=== PATIENT | female | born 1945 | race Caucasian/White ===

== ENCOUNTER → 2016-07-17 | Outpatient (CLI) | payer OTHER ==
--- NOTE | 2016-07-17 18:58 | CT ---
CT Lumbar Spine Contrast Indication: Pain. Technique: 1.2-mm thick helically acquired slices were obtained through the lumbar spine. The data was reconstructed in bone algorithm in the axial, sagittal, and coronal plane. Data was reconstructe d in soft tissue algorithm and soft tissue plane. Dose reduction techniques were utilized. Comparison: Fluoroscopy from April 01, 2016. Findings: L1 is retrolisthesed 2 mm on L2. L4 is anterolisthesed 10 mm on L5. The lumbar spine has mild dextrocurvature, apex at L1-L2, with a Plummer angle of 11 degrees between the superior endplate o f L1 and the superior endplate of L3. The L2 vertebral body is translated to the right 5 mm on L3. The bones are demineralized. No acute compression fracture. The posterior fusion construct extending from L3 to L5, consisting of dual posterior rods and bilater al transvertebral screws at L3, L4, and L5, is well seated. The L3, L4, and L5 vertebral bodies are completely osseous fused. The posterior elements are at least partially fused. Bilateral laminectom ies have been performed at L4 and L5. Anterior screws, with washers, are transfixed in the anterior bodies of L3, L4. No perihilar hardware fracture or lucency. T12-L1: Widely patent central canal and neural foramina. L1-L2: Grade 1 retrolisthesis of L1 on L2 combined with a diffuse broad-based disk bulge and facet h ypertrophy results in minimal central canal narrowing and severe bilateral neural foraminal narrowing , worse left than right. The exiting left L1 nerve root is compressed and deformed as it courses thr ough the neural foramen (best demonstrated on the sagittal reconstruction). L2-L3: Severe central canal narrowing is partially obscured by artifact radiating off the pedicle sc rews. Severe bilateral neural foraminal narrowing is worse on the right. An eccentric large right f acet spur, with a low-attenuation synovial cyst, results in severe narrowing of the right neural fora men and right ventral lateral recess (best demonstrated on images #215 through 241 of series #2). L3-L4: Residual strut of L3 laminectomy continues to result in mild to moderate central canal narro wing. The thecal sac measures 9 mm AP. The neural foramina appear to be widely patent, with no bony encroachment. L4-L5: Widely patent central canal decompressed posteriorly by a large laminectomy defect. Bilatera l neural foramina are widely patent. L5-S1: A large left posterolateral disk herniation (extrusion) results in severe narrowing of the ce ntral canal and ventral lateral recess compressing and deforming the left S1 nerve root in the ventra l lateral recess. Impression: 1. Demineralization. No acute fracture. 2. Well-seated anterior and posterior fusion construct extending from L3 to L5. No hardware looseni ng. 3. L5-S1: Left posterolateral disk herniation (extrusion) resulting in severe narrowing of the cent ral canal and left ventral lateral recess likely affecting the left S1 nerve root. 4. Severe bilateral neural foraminal narrowing at L1-L2 and L2-L3 due to facet hypertrophy and uncov ertebral spurs. A large asymmetric right facet and synovial cysts are present at the L2-L3 level. 5. Severe central canal narrowing at L2-L3 just superior to the level of the fusion construct. 6. Moderate central canal narrowing at L2-L3 due to residual L3 laminar strut.
== END ==
LOC: FIMAGING 13:59
DX: M51.27 Other intervertebral disc displacement, lumbosacral region (principal); M99.73 Connective tissue and disc stenosis of intervertebral foramina of lumbar region; M48.06 Spinal stenosis, lumbar region; M71.38 Other bursal cyst, other site; M89.38 Hypertrophy of bone, other site; M46.06 Spinal enthesopathy, lumbar region; Z98.1 Arthrodesis status

== ENCOUNTER 2016-08-05 09:48 | Inpatient (IN) | payer OTHER ==
[~2016-08-05 09:48] MED LIST: BACITRACIN 50,000 UNITS/10 ML SYR IRR ONE; BUPIVACAINE 0.25% 30 ML SDV ONE; BUPIVACAINE/EPI 0.25% 30 ML SDV ONE; CITRATE DEXTROSE SOLN 500 ML BAG ONE; PROPOFOL/EMULSION 500 MG/50 ML BOTTLE IV ONE; REMIFENTANIL HCL 1 MG VIAL ONE; THROMBIN (RECOMBINANT) 20,000 UNIT VIAL TP ONE; ceFAZolin 2 GM/DEXTROSE 100 ML IV ONE; fentaNYL 100 MCG/2 ML INJ ONE
[2016-08-05] MEDS ORDERED: CEFAZOLIN 2 GM/DEXTROSE/100 ML BAG IV ONE (10:17)
[2016-08-05] MEDS ORDERED: LIDOCAINE 1% 5 ML SDV ID PRN (11:14)
[2016-08-05] MEDS ORDERED: LR 1,000 ML IV ONE (11:14)
[2016-08-05] MEDS ORDERED: AMINOCAPROIC ACID 5 GM/20 ML VIAL ONE ×2 (11:37→18:16)
[2016-08-05] MEDS ORDERED: PROPOFOL 200 MG/20 ML VIAL ONE ×2 (11:43→17:17)
[2016-08-05] MEDS ORDERED: PHENYLEPHRINE HCL 100 MCG/ML SYR ONE (11:43)
[2016-08-05] MEDS ORDERED: PHENYLEPHRINE 10 MG/ML SDV ONE (12:39)
[2016-08-05] MEDS ORDERED: DEXAMETHASONE 4 MG/ML VIAL ONE (12:51)
[2016-08-05] MEDS ORDERED: ONDANSETRON 4 MG/2 ML VIAL ONE (12:51)
[2016-08-05] MEDS ORDERED: PROPOFOL/EMULSION 500 MG/50 ML BOTTLE IV ONE ×4 (13:34→19:40)
[2016-08-05] MEDS ORDERED: BACITRACIN 50,000 UNITS/10 ML SYR IRR ONE ×2 (14:02→15:46)
[2016-08-05] MEDS ORDERED: HYDROmorphONE/DILAUDID 2 MG/ML INJ ONE (14:07)
[2016-08-05] MEDS ORDERED: LACTULOSE 20 GM/30 ML UDCUP PO PRN (14:12)
[2016-08-05] MEDS ORDERED: MAG HYDROX/AL HYDROX/SIMETH 30 ML UDCUP PO PRN (14:12)
[2016-08-05] MEDS ORDERED: DIAZEPAM 5 MG TAB PO PRN (14:12)
[2016-08-05] MEDS ORDERED: MAGNESIUM HYDROXIDE 30 ML UDCUP PO PRN (14:12)
[2016-08-05] MEDS ORDERED: DIAZEPAM 10 MG/2 ML SYR IVP PRN (14:12)
[2016-08-05] MEDS ORDERED: ONDANSETRON DISINTEGRATING 4 MG TAB PO PRN (14:12)
[2016-08-05] MEDS ORDERED: NALOXONE HCL 0.4 MG/ML INJ IVP PRN ×2 (14:12→14:20)
[2016-08-05] MEDS ORDERED: BISACODYL 10 MG SUPP PR PRN (14:12)
[2016-08-05] MEDS ORDERED: ONDANSETRON 4 MG/2 ML VIAL IVP PRN (14:12)
[2016-08-05] MEDS ORDERED: NS W/ 20 KCl/L 1,000 ML IV SCH (14:15)
[2016-08-05] MEDS ORDERED: SPIRONOLACTONE 25 MG TAB PO PRN (14:19)
[2016-08-05] MEDS ORDERED: HYDROmorphONE/DILAUDID 6 MG/30 ML PCA IV PRN (14:20)
[2016-08-05] MEDS ORDERED: ceFAZolin 1 GM VIAL ONE (14:34)
[2016-08-05 15:15] LABS: BASE EXCESS -1.9 mEq/L (-2.5-2.5); BICARBONATE 22 mEq/L (22-26); MEASURED OXYGEN SATURATION 100 % (92-95); PCO2 39 mmHg (34-38); PO2 247 mmHg (65-75); TCO2 24 mEq/L (23-27)
[2016-08-05] MEDS ORDERED: fentaNYL 100 MCG/2 ML INJ ONE (15:29)
[2016-08-05] MEDS ORDERED: morphINE PF 10 MG/10 ML INJ ONE (15:29)
[2016-08-05] MEDS ORDERED: SUGAMMADEX SODIUM 200 MG/2 ML VIAL IVP ONE (16:00)
[2016-08-05 16:37] LABS: % IMMATURE GRANULYOCYTES 0.8 % (0.0-1.1); ABSOLUTE IMMATURE GRANULOCYTES 0.07 10^3/uL (0.00-0.10); ADD DIFF? NO; ADD MORPH? NO; ADD SCAN? NO; ATYPICAL LYMPHOCYTE FLAG 0 (0-99); FRAGMENT RBC FLAG 0 (0-99); HEMATOCRIT 37.3 % (38.0-47.0); HEMOGLOBIN 12.8 g/dL (12.6-16.3); LEFT SHIFT FLG 10 (0-99); LIPEMIA HEMOLYSIS FLAG 90 (0-99); MEAN CELL HEMOGLOBIN 29.8 pg (27.9-34.1); MEAN CELL HEMOGLOBIN CONCENTR. 34.3 g/dL (32.4-36.7); MEAN CELL VOLUME 86.9 fL (81.5-99.8); MEAN PLATELET VOLUME 9.2 fL (8.7-11.7); PLATELET CLUMPS FLAG 0 (0-99); PLATELET COUNT 328 10^3/uL (150-400); RED BLOOD CELL COUNT 4.29 10^6/uL (4.18-5.33); RED CELL DISTRIBUTION WIDTH 15.4 % (11.5-15.2)
[2016-08-05] MEDS: POLYETHYLENE GLYCOL 3350 17 GM PKT PO SCH ×2 (17:28→23:49)
[2016-08-05 17:36] LABS: APTT 28.2 SEC (23.0-38.0); INR 1.11 (0.83-1.16); PROTIME(PATIENT) 14.2 SEC (12.0-15.0)
[2016-08-05] MEDS ORDERED: REMIFENTANIL HCL 1 MG VIAL ONE (18:20)
[2016-08-05 19:37] LABS: BASE EXCESS -4.5 mEq/L (-2.5-2.5); BICARBONATE 21 mEq/L (22-26); MEASURED OXYGEN SATURATION 99 % (92-95); PCO2 42 mmHg (34-38); PO2 228 mmHg (65-75); TCO2 22 mEq/L (23-27)
[2016-08-05] MEDS: HYDROmorphONE/DILAUDID 1 MG/ML SYR IVP PRN (20:30)
[2016-08-05] MEDS ORDERED: ALBUMIN 5% 500 ML BOTTLE IV ONE ×2 (20:57→21:24)
[2016-08-05] MEDS: PANTOPRAZOLE SODIUM 40 MG TAB PO SCH (22:56)
[2016-08-05] MEDS ORDERED: ALBUMIN 5% 1,000 ML IV ONE (23:30)
[2016-08-05] MEDS: DILTIAZEM CD 180 MG CAP PO SCH (23:49)
[2016-08-05] MEDS: SENNOSIDES/DOCUSATE SODIUM TAB PO SCH (23:49)
[2016-08-05] MEDS: FLECAINIDE ACETATE 100 MG TAB PO SCH (23:52)
[2016-08-06] MEDS: FAMOTIDINE 20 MG/NACL 50 ML IV SCH ×2 (00:14→10:12)
--- NOTE | 2016-08-06 01:10 | GPROG ---
THIS IS A POSTOPERATIVE CHECK. The patient is status post a T12-L1 decompression and stabilization/fusion with instrumentation. Tasia umaña is not having much pain subjectively. She is sleepy but awakens to voice. She moves her upper an d lower extremities well to command. Her blood pressure is a little low at 91/42 with a heart rate of 81. Her temperature is a little low at 35.6 and they are warming her. Her urine output is good. They will repeat labs in a few hours and call with any significant changes. /[id number]/MODL
[2016-08-06 04:21] LABS: % IMMATURE GRANULYOCYTES 0.4 % (0.0-1.1); ABSOLUTE IMMATURE GRANULOCYTES 0.04 10^3/uL (0.00-0.10); ADD DIFF? NO; ADD MORPH? NO; ADD SCAN? NO; ATYPICAL LYMPHOCYTE FLAG 10 (0-99); FRAGMENT RBC FLAG 0 (0-99); HEMATOCRIT 25.5 % (38.0-47.0); HEMOGLOBIN 8.6 g/dL (12.6-16.3); LEFT SHIFT FLG 0 (0-99); LIPEMIA HEMOLYSIS FLAG 80 (0-99); MEAN CELL HEMOGLOBIN 30.6 pg (27.9-34.1); MEAN CELL HEMOGLOBIN CONCENTR. 33.7 g/dL (32.4-36.7); MEAN CELL VOLUME 90.7 fL (81.5-99.8); MEAN PLATELET VOLUME 9.6 fL (8.7-11.7); PLATELET CLUMPS FLAG 0 (0-99); PLATELET COUNT 218 10^3/uL (150-400); RED BLOOD CELL COUNT 2.81 10^6/uL (4.18-5.33); RED CELL DISTRIBUTION WIDTH 15.5 % (11.5-15.2)
[2016-08-06 04:35] LABS: ANION GAP 8 mEq/L (8-16); CALCIUM 8.8 mg/dL (8.5-10.4); CARBON DIOXIDE 22 mEq/l (22-31); CHLORIDE 109 mEq/L (97-110); CREATININE 0.5 mg/dL (0.6-1.0); GLOMERULAR FILTRATION RATE > 60; GLUCOSE 152 mg/dL (70-100); POTASSIUM 4.6 mEq/L (3.5-5.2); SODIUM 139 mEq/L (134-144)
--- NOTE | 2016-08-06 08:07 | SOAPPROG ---
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 Objective: Vital Signs Temp Pulse Resp BP Pulse Ox 36.3 C 100 17 124/63 H 92 08/05/16 20:14 08/06/16 05:15 08/06/16 05:15 08/06/16 05:15 08/06/16 05:15 Laboratory Results 08/06/16 04:15 08/06/16 04:15 08/05/16 08/06/16 08/07/16 05:59 05:59 05:59 Intake Total 3292 Output Total 810 Balance 2482 PT 14.2 SEC (12.0-15.0) 08/05/16 19:23 INR 1.11 (0.83-1.16) 08/05/16 19:23 AAOX4, +follows commands PERRL, EOMI, no facial droop 5/5 + light touch C/D/I ICD10 Worksheet Patient Problems: Problems Problem Status Onset Fusion of lumbar spine Acute - ICD10 Problem Qualifiers (1) Fusion of lumbar spine
[2016-08-06] MEDS: POLYETHYLENE GLYCOL 3350 17 GM PKT PO SCH ×3 (10:11→20:45)
[2016-08-06] MEDS: FLECAINIDE ACETATE 100 MG TAB PO SCH ×2 (10:12→20:44)
[2016-08-06] MEDS: METHOCARBAMOL 750 MG TAB PO PRN ×3 (10:13→21:21)
[2016-08-06] MEDS: SENNOSIDES/DOCUSATE SODIUM TAB PO SCH ×2 (10:13→20:45)
[2016-08-06] MEDS: HYDROmorphONE/DILAUDID 1 MG/ML SYR IVP PRN ×4 (10:40→18:04)
[2016-08-06] MEDS: HYDROmorphONE/DILAUDID 2 MG TAB PO PRN ×2 (11:18→15:35)
--- NOTE | 2016-08-06 11:56 | GOP ---
DATE OF OPERATION: 08/05/2016 SURGEON: Juan Platt MD NEUROSURGEON: Juan Platt MD. GENETIC COUNSELOR: Asuncion Anna DO. ANESTHESIA: General endotracheal. PREOPERATIVE DIAGNOSIS: Severe degenerative scoliosis with critical spinal stenosis and progressive loss of neurologic function including bowel and bladder changes and perigenitalia numbness. High ri sk surgical candidate given age, comorbidities, and required surgical intervention. POSTOPERATIVE DIAGNOSIS: Severe degenerative scoliosis with critical spinal stenosis and progressiv e loss of neurologic function including bowel and bladder changes and perigenitalia numbness. High r isk surgical candidate given age, comorbidities, and required surgical intervention PROCEDURE PERFORMED: 1. Removal of posterior segmental (pedicle screw) fixation from L3 through L5 with re-instrumentati on from T12 through S1 with left-sided far lateral transfacet, transpedicular decompression at the T 12-L1, L1-2 and L2-3 levels with redo left-sided L5-S1 posterior hemilaminectomy, medial facetectomy , foraminotomy, and diskectomy. T12-L1, L1-2, L2-3 and L5-S1 posterior/transforaminal lumbar interbo dy fusion with 2 structural PEEK interbody spacers, local autograft and bone morphogenic protein at each level. 2. T12 through S1 posterolateral fusion with local autograft and bone morphogenic protein. 3. Use of intraoperative microscopy, fluoroscopy and computer volumetric stereotactic navigation wi th intraoperative neurophysiologic testing. 4. Injection of intrathecal narcotic analgesics for postoperative pain control. FINDINGS: ESTIMATED BLOOD LOSS: 600 mL. INDICATIONS: The patient is a 70-year-old woman with intractable lower back pain, left greater than right lower extremity radicular symptoms and progressive loss of neurologic function with perigenit kahlil numbness and bowel and bladder changes. She underwent an attempted decompression approximately 4 months ago by another spine surgeon who failed and, by report, the spine surgeon could not get the herniated disc out or do the decompression adequately due to the complexity of the surgery and the patient's body habitus. She presents now for a redo decompression along with extension of her fusion and removal and replacement of instrumentation. DESCRIPTION OF PROCEDURE: After informed consent was obtained, the patient was taken to the operati ng room and placed in the prone position on the Thom table. The thoracolumbosacral areas were pre pped and draped in the sterile fashion. After fluoroscopic localization of the correct levels, the s ubcutaneous and intramuscular tissues were infiltrated with local anesthesia. A midline linear incis ion was then created from approximately L1 through S1. This was carried down the fascial layer, whic h was incised using monopolar electrocautery and carried in the subperiosteal plane along the spinou s processes and out the lamina bilaterally. Intraoperative fluoroscopy was again used to verify the correct levels. Following this, the old instrumentation was identified and carefully removed. There was an extensive amount of bone growth over the instrumentation, which made it much more difficult david toro to remove. We eventually were able to remove all the instrumentation and harvested an ext ensive amount of bone mass for further bone grafting. The microscope was then brought in and a left- sided redo posterior hemilaminectomy, medial facetectomy and foraminotomy and entire facetectomy was then performed at the L5-S1 level on the left. A very large disk herniation was identified within luis eduardo extensive amount of scar tissue that needed to be meticulously dissected out under high-power jacky roscopy. All this was extensively decompressed at L5 and S1 with complete unroofing of the neurofora men and lateral recess and central canal. Following this, a similar decompression was performed at [facility] L2-3 level where there was an extensive amount of scar tissue and very severe/critical spinal marva nosis and lateral recess and neuroforaminal encroachment. Again, this was extremely difficult and ti me consuming, and required meticulous dissection under high-power microscopy, but eventually we were able to extensively decompress the thecal sac, bilateral neuroforamen and lateral recesses. A left- sided far lateral transfacet, transpedicular decompression was then performed at the L1-2 level for removal of the far lateral disc herniation and decompression of the thecal sac, nerve roots and late ral recess. Following this, the [employer] neuronavigational system was brought in and, using computer volumetric s tereotactic navigation, pedicle screws were placed at L1, L2, L3, L4, L5 and S1 bilaterally. Each in dividual screw was tested neurophysiologically with monopolar electrostimulation and interpretation of the potentials by the surgeon. Biplanar fluoroscopy was utilized to verify good position of the s crews. The left L4 screw was slightly lateral, and this was removed and replaced with a more medial trajectory. All screws tested high. Note that the L1 and L2 screws were not super solid. There was n o spinous process to place an interspinous process clamp device for added fixation. Given her body h abitus and extensive construct, I felt that she was at very high risk for a junctional kyphosis and hardware failure. I, therefore, exposed up to T12 and placed screws at T12 as well. Then, performed a decompression on the left in order to perform a transforaminal lumbar interbody fusion procedure. I was able to place an Axle device at that level given the spinous processes and also had better scr ew purchase. Following this, the short rods were placed first at L5-S1, then at L2-3 then at L1-2, then at T12-L1 , during which time complete diskectomies were performed under high-power microscopy with preparatio n of the endplates and placement of 2 structural PEEK interbody spacers, local autograft and bone mo rphogenic protein at each level for T12-L1, L1-2, L2-3 and L5-S1 posterior/transforaminal lumbar int erbody fusion. Longer rods were then contoured and placed on the right without too much difficulty. On the left, the extreme acute angle of the curve and irregularity of the screw angles made it neces seng to use side connectors or take out 3 of the 4 bottom screws. Unfortunately, the chemical sales representative for [employer] did not bring the proper side connector instrumentation. After spending an extra half an hour trying to bend the rods, I felt that it was best to take out the system on the left side and replace it with a different system where we had the proper instrumentation. Therefore, the left-cesario ed [employer]tronic screws were removed and replaced with LnK pedicle screws and rods with side connectors at L5, L4 and L3. This was a 6 mm tyra as opposed to the 4.75 mm tyra in the [employer] system on the r ight. An X-spine Axle device was placed at the T12-L1 level for added fixation as well. The wound was then copiously irrigated with antibiotic irrigation. Meticulous hemostasis was achieve d. Biplane fluoroscopy was utilized to verify good position of the interbody spacers, screws, rods a nd interspinous process clamp. The remaining lamina, facet joints and bone mass were all extensively decorticated at T12, L1, L2, L3, L4, L5 and S1, and the residual local autograft along with bone mo rphogenic protein was placed out laterally for T12-L1 posterolateral fusion. 200 mcg of Duramorph al saranya with 50 mcg of fentanyl were then injected intrathecally for postoperative pain control. The sub cutaneous and intramuscular tissues were re-infiltrated with local anesthesia. A drain was placed. T he wound was closed in a layered fashion using interrupted Vicryl sutures followed by Steri-Strips o n the skin. COMPLICATIONS: None. DISPOSITION: The patient is currently in the process of being repositioned for extubation. ADDENDUM: Please note that the instrumentation on the right side of this fusion is [employer] with a 4.75 tyra system and instrumentation on the left is LnK with a 6-0 tyra system. The interspinous proc ess clamp devices are an X-spine Axle system. /[id number]/MODL
[2016-08-06] MEDS: ENOXAPARIN 40 MG/0.4 ML SYR SC SCH (13:55)
[2016-08-06] MEDS: DILTIAZEM CD 180 MG CAP PO SCH (18:04)
--- NOTE | 2016-08-06 20:43 | GCON ---
REASON FOR CONSULTATION: Medical management. HISTORY OF PRESENT ILLNESS: The patient is a 70-year-old female with a history of lumbar radiculopa thy who was admitted for T12-L1 decompression, stabilization/fusion by Dr. Platt on 08/05. The patient had undergone 3 prior lumbar surgeries. Her most recent surgery was March 2016 done vic [facility] and underwent L5-S1, S1-S2 laminoforaminotomy. The patient was doing fairly well up until this past April when her pain progressed. Most recent ly, she has been having progressive loss of bowel and bladder function and perigenitalia numbness. Currently, her pain is 10/10. She said she had a busy day with PT, fitting for a brace as well as c hanging rooms in the hospital. The pain is dull. She states that Dilaudid is not working and also is causing itchiness that is uncomfortable. She does not like diazepam. It makes her feel confused and is not helping her pain. REVIEW OF SYSTEMS: I completed a 10-point review of systems. Negative except as noted in the HPI. PAST MEDICAL HISTORY: 1. Hypertension. 2. Right hearing loss. 3. Atrial fibrillation, status post ablation. 4. NATALIA, on CPAP. 5. History of uterine/ovarian cancer. 6. Thyroid goiter. 7. Nonmalignant pancreatic tumor. 8. L5-S1 radiculopathy. 9. Basal cell carcinoma on back. PAST SURGICAL HISTORY: 1. L3 to L5 fusion. 2. Partial thyroidectomy. 3. Partial pancreatectomy and splenectomy. 4. Cholecystectomy. 5. Knee surgery. 6. Hysterectomy. 7. Mohs procedure on back for basal cell. ALLERGIES: 1. Sulfa. 2. Dilaudid - itchiness. FAMILY HISTORY: Father with lung cancer. Brother with an PA. Sister with alcohol abuse. SOCIAL HISTORY: Lives in [place] with her . No illicit drugs or alcohol. HOME MEDICATIONS: 1. Spironolactone 25 mg p.r.n. 2. Xarelto 20 mg daily. 3. Prilosec 20. 4. Tylenol p.r.n. 5. Diltiazem 100 mg daily. 6. Xanax 0.5 mg q.h.s. p.r.n. 7. Herbal supplement. 8. Motrin. 9. [place]. 10. Flecainide 50 mg b.i.d. PHYSICAL EXAMINATION: VITAL SIGNS: Temperature 36.5, blood pressure 148/80, respiration 18, heart rate 105, 100% on 2 L. GENERAL: Lying in bed, in no acute distress. HEENT: Mild periorbital eryt ligia. CV: Regular. Tachy. No murmurs, gallops, or rubs. LUNGS: Clear. ABDOMEN: Soft, nontend er, nondistended. Positive bowel sounds. : No suprapubic tenderness. MUSCULOSKELETAL: Moving all extremities. NEURO: 2 through 12 intact. PSYCH: Alert and oriented x3, yet repetitive with h er answers. Mildly slurred speech. LABORATORY DATA: WBC 9.6, hemoglobin 8.6, hematocrit 25, platelets 218. Coags within normal. Sodi um 139, potassium 4.6, chloride 109, carbon dioxide 22, BUN 11, creatinine 0.5, glucose 152, calcium 8.8. Lumbar spine CT on 07/17/2016: Well-seated anterior-posterior fusion construct extending from L3 to L5. L5-S1 left posterolateral disk herniation resulting in severe narrowing of the central canal a nd the left ventral lateral recess. Severe bilateral neuroforaminal narrowing at L1-L2 and L2-L3. Severe central canal narrowing at L2 and L3. ASSESSMENT AND PLAN: 1. Severe degenerative scoliosis with critical spinal stenosis, with progressive neural loss: The patient underwent T12-L1 decompression with fusion. [facility] Currently, her pain is not controlled. She states that Dilaudid is not working and actually is causing her quite a bit of itching, and would like to trial morphine. She also states that diazepam makes her confused and feels drugged; thus, wants that discontinued. 2. Acute on chronic pain: As stated above, Dilaudid is not working and is causing too much itching . The patient is to start MS Contin this evening. We will continue with that and trial IV morphine as well as oral immediate for breakthrough. Caution with over-sedation. Monitor creatinine functi on. 3. Atrial fibrillation: Status post ablation. Continue diltiazem and flecainide. Xarelto on hold per Neurosurgery. 4. Obstructive sleep apnea: Continue CPAP. 5. Accelerated hypertension: Mildly elevated, likely secondary to acute pain. We will continue he r home medications. 6. History of ovarian/uterine cancer, status post hysterectomy. 7. Basal cell carcinoma: The patient has had a prior Mohs procedure and will follow up with her de rmatologist. 8. Diet: Regular. 9. DVT prophylaxis: Lovenox. Thank you for this consultation. We will follow along. Please call with any questions. /[id number]/MODL
[2016-08-06] MEDS: morphINE SR 30 MG TAB PO SCH (20:44)
[2016-08-06] MEDS: PANTOPRAZOLE SODIUM 40 MG TAB PO SCH (20:44)
[2016-08-06] MEDS ORDERED: morphINE SR 15 MG TAB PO SCH (21:00)
[2016-08-06] MEDS: ACETAMINOPHEN 325 MG TAB PO PRN (22:54)
[2016-08-07] MEDS: ACETAMINOPHEN 325 MG TAB PO PRN ×3 (03:25→23:32)
[2016-08-07] MEDS: METHOCARBAMOL 750 MG TAB PO PRN ×2 (03:26→12:10)
--- NOTE | 2016-08-07 07:29 | SOAPPROG ---
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 Rehab options scd/sarah/lovenox for dvt prophylaxis please call with neuro changes patient was seen by DR Carson 08/06/16 08:04 08/06/16 08:06 08/07/16 07:28 Subjective: + back pain, no leg pain, pt did not sleep well last night Objective: Vital Signs Temp Pulse Resp BP Pulse Ox 36.8 C 94 14 132/57 H 87 L 08/07/16 04:11 08/07/16 04:11 08/07/16 04:11 08/07/16 04:11 08/07/16 04:11 Laboratory Results 08/06/16 04:15 08/06/16 04:15 08/06/16 08/07/16 08/08/16 05:59 05:59 05:59 Intake Total 3292 2100 Output Total 810 1335 40 Balance 2482 765 -40 PT 14.2 SEC (12.0-15.0) 08/05/16 19:23 INR 1.11 (0.83-1.16) 08/05/16 19:23 AAOx4, +FC PERRL, EOMI, no facial droop 5/5 + Light touch C/D/I ICD10 Worksheet Patient Problems: Problems Problem Status Onset Fusion of lumbar spine Acute - ICD10 Problem Qualifiers (1) Fusion of lumbar spine
[2016-08-07] MEDS: SENNOSIDES/DOCUSATE SODIUM TAB PO SCH ×2 (08:24→21:10)
[2016-08-07] MEDS: POLYETHYLENE GLYCOL 3350 17 GM PKT PO SCH ×3 (08:24→21:16)
[2016-08-07] MEDS: morphINE SR 30 MG TAB PO SCH ×2 (08:24→21:10)
[2016-08-07] MEDS: ENOXAPARIN 40 MG/0.4 ML SYR SC SCH (08:25)
[2016-08-07] MEDS: FLECAINIDE ACETATE 100 MG TAB PO SCH ×2 (08:25→21:11)
--- NOTE | 2016-08-07 13:35 | HOSPPROG ---
Hospitalist Progress Note Assessment/Plan: 70-year-old female presents to the hospital for scheduled back surgery. Consultation for medical management. Is my 1st encounter with the patient, chart reviewed. # hypertension this has resolved and is within normal limits # pain Better controlled today than yesterday Still having some discomfort # postop day 2 fusion and decompression per Neurosurgery #History of atrial fibrillation Status post ablation Rate controlled # anemia Expected in the postoperative setting # disposition Per Neurosurgery recommendations Will likely go home with home care Will continue to follow with you Subjective: up in the chair. Brace on. Still having some mild discomfort but better than the day before. Objective: Vital Signs Temp Pulse Resp BP Pulse Ox 36.4 C 91 20 131/60 H 96 08/07/16 07:36 08/07/16 07:36 08/07/16 07:36 08/07/16 07:36 08/07/16 07:36 Laboratory Results 08/06/16 04:15 08/06/16 04:15 08/06/16 08/07/16 08/08/16 05:59 05:59 05:59 Intake Total 3292 2100 Output Total 810 1335 640 Balance 2482 765 -640 PT 14.2 SEC (12.0-15.0) 08/05/16 19:23 INR 1.11 (0.83-1.16) 08/05/16 19:23 - Physical Exam Constitutional: appears nourished, obese, uncomfortable Eyes: PERRL, anicteric sclera, EOMI Ears, Nose, Mouth, Throat: moist mucous membranes, hearing normal, ears appear normal Cardiovascular: No JVD, No tachycardia, No edema Respiratory: no respiratory distress, no rales or rhonchi, reduced air movement Gastrointestinal: No tenderness, No ascites, No guarding Skin: warm, normal color, No erythema Musculoskeletal: no joint effusions, muscular tenderness, generalized weakness Neurologic: AAOx3 Psychiatric: not anxious, not encephalopathic, thought process linear ICD10 Worksheet Patient Problems: Problems Problem Status Onset Fusion of lumbar spine Acute
[2016-08-07] MEDS: DILTIAZEM CD 180 MG CAP PO SCH ×2 (16:54→16:58)
[2016-08-07] MEDS: HYDROCODONE/APAP 10/325 TAB PO PRN ×2 (16:59→18:37)
[2016-08-07] MEDS ORDERED: ALPRAZolam 0.5 MG TAB PO PRN (17:30)
[2016-08-07] MEDS: PANTOPRAZOLE SODIUM 40 MG TAB PO SCH (21:11)
[2016-08-07] MEDS: diphenhydrAMINE 25 MG CAP PO PRN (23:33)
[2016-08-08] MEDS: HYDROCODONE/APAP 10/325 TAB PO PRN ×2 (03:00→09:01)
[2016-08-08] MEDS: diphenhydrAMINE 25 MG CAP PO PRN ×2 (03:00→12:24)
--- NOTE | 2016-08-08 08:03 | PDIAF ---
- Diagnosis Diagnosis: Lumbar stenosis/DJD Code Status: Full Code - Medication Management Discharge Medications: Medications to Continue on Transfer Diltiazem HCl [Cartia XT 180mg] 180 mg PO DAILY@18 03/12/16 [Last Taken 16:30] Omeprazole [Prilosec 20 mg] 20 mg PO HS 03/12/16 [Last Taken 08/04/16 17:00] Rivaroxaban [Xarelto 10mg (*)] 20 mg PO DAILY@18 03/12/16 [Last Taken 08/01/16] Spironolactone [Aldactone 25 MG (*)] 25 mg PO DAILY PRN 03/12/16 [Last Taken 05:00] ALPRAZolam [Xanax 0.5 MG (*)] 0.5 mg PO HS PRN 04/01/16 [Last Taken 08/05/16 07: 30] Acetaminophen [Tylenol ES 500 mg (*)] 500 - 1,000 mg PO Q4 PRN 04/01/16 [Last Taken 08/05/16 02:00] Flecainide Acetate [Flecainide Acetate] 50 mg PO BID 07/17/16 [Last Taken 04:30] Herbals/Supplements -Info Only 1 ea PO DAILY 07/17/16 [Last Taken 07/26/16] Hydrocodone/Acetaminophen [[place] 5/325 (*)] 1 each PO HS 07/17/16 [Last Taken 07:30] Ibuprofen [Motrin (*)] 400 mg PO TID PRN 07/17/16 [Last Taken 07/15/16] Discharge Medications: Refer to the Discharge Home Medication list for PRN reason. - Orders Services needed: Home Care, Registered Nurse, Physical Therapy, Occupational Therapy Home Care Face to Face: I certify that this patient was under my care and that I had the required [id number] encounter meeting the encounter requirements on the discharge day. My findings support the fact that the patient is homebound as defined in CMS Chapter 7 Medicare Benefits Manual 30.1.1, The condition of the patient is such that there exists a normal inability to leave home and consequently, leaving home would require a considerable and taxing effort. Diet Recommendation: no restrictions on diet Sutures/Scottie Site: steri strips will be removed at Post op appt. Equipment: LSO brace - Follow Up Care Current Providers and Referrals: Jennifer Muñoz [Primary Care Provider] -
--- NOTE | 2016-08-08 08:08 | SOAPPROG ---
SOAP Progress Note Assessment/Plan: Assessment: 70yo female sp T12-S1 Fusion POD #3. Doing well today Plan: Needs lumbar xrays DC Planning DC JOSE drain per Dr. Platt 08/08/16 08:03 08/08/16 08:08 Subjective: out of bed in chair. Pain well controlled Still reports mild left leg paresthesias Objective: Vital Signs Temp Pulse Resp BP Pulse Ox 36.9 C 54 L 14 163/104 H 93 08/08/16 07:54 08/08/16 07:54 08/08/16 07:54 08/08/16 07:54 08/08/16 07:54 Laboratory Results 08/06/16 04:15 08/06/16 04:15 08/07/16 08/08/16 08/09/16 05:59 05:59 05:59 Intake Total 2100 700 Output Total 1335 640 Balance 765 60 PT 14.2 SEC (12.0-15.0) 08/05/16 19:23 INR 1.11 (0.83-1.16) 08/05/16 19:23 NEURO: PONCE, sens +LT JOSE: 40ml ICD10 Worksheet Patient Problems: Problems Problem Status Onset Fusion of lumbar spine Acute
[2016-08-08] MEDS: POLYETHYLENE GLYCOL 3350 17 GM PKT PO SCH (09:01)
[2016-08-08] MEDS: ENOXAPARIN 40 MG/0.4 ML SYR SC SCH (09:01)
[2016-08-08] MEDS: SENNOSIDES/DOCUSATE SODIUM TAB PO SCH (09:02)
[2016-08-08] MEDS: FLECAINIDE ACETATE 100 MG TAB PO SCH (09:04)
[2016-08-08] MEDS: morphINE SR 30 MG TAB PO SCH (09:29)
[2016-08-08 09:56] VITALS: BP 132/65; PULSE 92; RESP 16; TEMP 97.5; O2SAT 92
--- NOTE | 2016-08-08 14:33 | HOSPPROG ---
Hospitalist Progress Note Assessment/Plan: 70-year-old female presents to the hospital for scheduled back surgery. Consultation for medical management. # hypertension this has resolved and is within normal limits # pain Better controlled today than yesterday Still having some discomfort # postop day 3 fusion and decompression per Neurosurgery #History of atrial fibrillation Status post ablation Rate controlled Restart Xarelto per Neurosurgery # anemia Expected in the postoperative setting # disposition Per Neurosurgery recommendations Will likely go home with home care Will continue to follow with you Subjective: Up in the chair. Pain 5 out 10. Doing well today eager to go home. Objective: Vital Signs Temp Pulse Resp BP Pulse Ox 36.4 C 92 16 132/65 H 92 08/07/16 07:36 08/08/16 08:22 08/08/16 08:22 08/08/16 08:22 08/08/16 08:22 Laboratory Results 08/06/16 04:15 08/06/16 04:15 08/07/16 08/08/16 08/09/16 05:59 05:59 05:59 Intake Total 2100 700 Output Total 1335 640 Balance 765 60 PT 14.2 SEC (12.0-15.0) 08/05/16 19:23 INR 1.11 (0.83-1.16) 08/05/16 19:23 - Physical Exam Constitutional: appears nourished, obese Eyes: PERRL, anicteric sclera Ears, Nose, Mouth, Throat: moist mucous membranes, hearing normal Cardiovascular: No JVD, No edema Respiratory: no respiratory distress, reduced air movement Gastrointestinal: No tenderness, No ascites Skin: warm, normal color Musculoskeletal: muscular tenderness, generalized weakness Psychiatric: not anxious, not encephalopathic, thought process linear ICD10 Worksheet Patient Problems: Problems Problem Status Onset Fusion of lumbar spine Acute
[2016-08-09] MEDS ORDERED: RIVAROXABAN 20 MG TAB PO SCH (09:00)
== END 2016-08-08 14:04 | disposition home health service (06) | DRG 457 ==
LOC: F3N 09:48 → F2N 16:00 → F3N 08-06 14:22 → FOB 08-06 17:30 → F3N 08-06 17:35
PROVIDERS: ADMIT Neurological Surgery; ATTEND Neurological Surgery
PROC: 01NB0ZZ Release Lumbar Nerve, Open Approach (ICD-10-PCS; principal; 2016-08-05 11:45)
PROC: 0RGA071 Fusion of Thoracolumbar Vertebral Joint with Autologous Tissue Substitute, Posterior Approach, Posterior Column, Open Approach (ICD-10-PCS; principal; 2016-08-05 11:45)
PROC: 3E0V0GB Introduction of Recombinant Bone Morphogenetic Protein into Bones, Open Approach (ICD-10-PCS; principal; 2016-08-05 11:45)
PROC: 4A10X4G Monitoring of Central Nervous Electrical Activity, Intraoperative, External Approach (ICD-10-PCS; principal; 2016-08-05 11:45)
PROC: 0SG10AJ Fusion of 2 or more Lumbar Vertebral Joints with Interbody Fusion Device, Posterior Approach, Anterior Column, Open Approach (ICD-10-PCS; principal; 2016-08-05 11:45)
PROC: 0ST20ZZ Resection of Lumbar Vertebral Disc, Open Approach (ICD-10-PCS; principal; 2016-08-05 11:45)
PROC: 0SG30AJ Fusion of Lumbosacral Joint with Interbody Fusion Device, Posterior Approach, Anterior Column, Open Approach (ICD-10-PCS; principal; 2016-08-05 11:45)
PROC: 0QP004Z Removal of Internal Fixation Device from Lumbar Vertebra, Open Approach (ICD-10-PCS; principal; 2016-08-05 11:45)
PROC: 0SG1071 Fusion of 2 or more Lumbar Vertebral Joints with Autologous Tissue Substitute, Posterior Approach, Posterior Column, Open Approach (ICD-10-PCS; principal; 2016-08-05 11:45)
PROC: 8E0WXBZ Computer Assisted Procedure of Trunk Region (ICD-10-PCS; principal; 2016-08-05 11:45)
PROC: 0RGA0AJ Fusion of Thoracolumbar Vertebral Joint with Interbody Fusion Device, Posterior Approach, Anterior Column, Open Approach (ICD-10-PCS; principal; 2016-08-05 11:45)
PROC: 0SG3071 Fusion of Lumbosacral Joint with Autologous Tissue Substitute, Posterior Approach, Posterior Column, Open Approach (ICD-10-PCS; principal; 2016-08-05 11:45)
DX: M51.17 Intervertebral disc disorders with radiculopathy, lumbosacral region (principal); M48.07 Spinal stenosis, lumbosacral region; M41.57 Other secondary scoliosis, lumbosacral region; M47.16 Other spondylosis with myelopathy, lumbar region; Z98.1 Arthrodesis status; D62 Acute posthemorrhagic anemia; I10 Essential (primary) hypertension; G47.33 Obstructive sleep apnea (adult) (pediatric); K21.9 Gastro-esophageal reflux disease without esophagitis; H91.91 Unspecified hearing loss, right ear; Z85.42 Personal history of malignant neoplasm of other parts of uterus
CPT/HCPCS: 97116-GP; 97161-GP; 97165-GO; 97535-GO; C1713; G8978-GP-CJ; G8979-GP-CI; G8980-GP-CI; G8987-GO-CK; G8988-GO-CI; J0690; J1100; J1170; J1650; J2274; J2370; J2405; J2704; J3010; J7060; P9041

== ENCOUNTER 2016-08-11 17:42 | Inpatient (IN) | payer OTHER ==
--- NOTE | 2016-08-11 18:11 | EDPHY ---
H & P Stated Complaint: Abd pain,constipation,had enemas at ER in [place] today;1 wk post op Time Seen by Provider: 08/11/16 18:10 - Personal History Current Tetanus Diphtheria and Acellular Pertussis (TDAP): Yes - Medical/Surgical History Hx Diabetes: No Other PMH: recent back surg at [facility] - Social History Smoking Status: Never smoked Constitutional: Initial Vital Signs Temperature (C) 36.7 C 08/11/16 17:50 Heart Rate 95 08/11/16 17:50 Respiratory Rate 20 08/11/16 17:50 Blood Pressure 169/97 H 08/11/16 17:50 O2 Sat (%) 94 08/11/16 17:50 O2 Delivery Mode Room Air Allergies/Adverse Reactions: oxycodone Allergy (Verified 08/11/16 17:56) Sulfa (Sulfonamide Antibiotics) Allergy (Verified 08/11/16 17:56) Anaphylaxis Home Medications: Medication Instructions Recorded Diltiazem HCl [Cartia XT 180mg] 180 mg PO DAILY@18 03/12/16 Omeprazole [Prilosec 20 mg] 20 mg PO HS 03/12/16 Rivaroxaban [Xarelto 10mg (*)] 20 mg PO DAILY@18 03/12/16 ALPRAZolam [Xanax 0.5 MG (*)] 0.5 mg PO HS PRN 04/01/16 Acetaminophen [Tylenol ES 500 mg 500 - 1,000 mg PO Q4 PRN 04/01/16 (*)] Flecainide Acetate 50 mg PO BID 07/17/16 Methocarbamol [Robaxin 750 mg (*)] 750 mg PO QID PRN #60 tab 08/08/16 Sennosides/Docusate Sodium 1 - 2 tab PO BID #0 tab 08/08/16 [Senokot-S] Spironolactone [Aldactone 25 MG 25 mg PO DAILY PRN #0 tab 08/08/16 (*)] HYDROcodone/APAP 10/325 [[place] 1 - 2 tab PO Q4-6PRN PRN 08/11/16 10325 (*)] Herbals/Supplements -Info Only 1 ea PO DAILY 08/11/16 oxyCODONE IR [Oxycodone Ir (*)] 5 - 10 mg PO Q4-6PRN PRN 08/11/16 Medical Decision Making ED Course/Re-evaluation: CHIEF COMPLAINT: Back pain, constipation. HISTORY OF PRESENT ILLNESS: The patient is a 70-year-old female status post back surgery 08/05 who presents with with worsening back pain and constipation. She initially went to a hospital and had an enema that helped but the constipation has returned. She admits generalized weakness. REVIEW OF SYSTEMS: A 10 point review of systems was performed and is negative with the exception of the elements mentioned in the history of present illness. PHYSICAL EXAM: HR, BP, O2 Sat, RR. Temp noted General Appearance: Alert, well hydrated, appropriate, and non-toxic appearing. Head: Atraumatic without scalp tenderness or obvious injury Eyes: Pupils equal, round, reactive to light and accommodation, EOMI, no trauma , no injection. Ears: Clear bilaterally, no perforation, normal landmarks Nose: Atraumatic, no rhinorrhea, clear. Throat: There is no erythema or exudates, no lesions, normal tonsils, mucus membranes moist. Neck: Supple, 2+ carotid upstroke, nontender, no lymphadenopathy. Respiratory: No retractions, no distress, no wheezes, and no accessory muscle use. Lungs are clear to auscultation bilaterally. Cardiovascular: Regular rate and rhythm, no murmurs, rubs, or gallops. Bilateral carotid, radial, dorsalis pedis, and posterior tibial pulses intact. Good capillary refill all extremities. Gastrointestinal: Abdomen is soft, nontender, non-distended, no masses, no rebound, no guarding, no peritoneal signs. Musculoskeletal: Normal active ROM of all extremities, atraumatic. Back: Back incision present. Wound is clean, dry, and intact. No discharge. Neurological: Alert, appropriate, and interactive. The patient has normal DTRs and non-focal cranial nerves, motor, sensory, and cerebellar exam. Skin: No rashes, good turgor, no nodules on palpation. Past medical history:Denies. Past surgical history:Back surgery. Family history:Non-contributory. Social history:Here with family. DIAGNOSTICS/PROCEDURES/CRITICAL CARE TIME: DIFFERENTIAL DIAGNOSIS: The differential diagnosis for the patient includes but is not limited to constipation, cervical strain, sepsis, cellulitis. MEDICAL DECISION MAKING: I was called prior to the patient's arrival by Dr. Platt, neurosurgery. He performed a back surgery on the patient on 08/05. Since that time she has become weak and constipated. He would like her admitted for further monitoring and possible connection to a physical therapist. We will obtain basic labs and have the patient admitted to the hospitalist service. 1L IV saline administered for hydration. 1mg IV Dilaudid for pain. 1829: Consulted with Dr. Reeves, hospitalist. He accepts admission. 1948: Patient still in pain. Additional 1mg IV Dilaudid administered. 2019: Bladder scan shows 600ccs of urine. Street catheter will be placed. - Data Points Medications Given: Discontinued Medications Hydromorphone HCl (Dilaudid) 1 mg IVP EDNOW ONE Stop: 08/11/16 19:03 Last Admin: 08/11/16 19:05 Dose: 1 mg Hydromorphone HCl (Dilaudid) 1 mg IVP EDNOW ONE Stop: 08/11/16 19:49 Last Admin: 08/11/16 20:00 Dose: 1 mg Sodium Chloride (Ns) 1,000 mls @ 0 mls/hr IV ONCE ONE PRN Reason: Wide Open Stop: 08/11/16 18:17 Last Admin: 08/11/16 18:59 Dose: 1,000 mls Departure - Departure Disposition: [facility] Inpatient Acute Clinical Impression: Generalized weakness Constipation Qualifiers: Constipation type: unspecified constipation type Qualified Code(s): K59.00 - Constipation, unspecified Condition: Fair Report Scribed for: Mik Mendoza Report Scribed by: Magen Norman Date of Report: 08/11/16 Time of Report: 18:15
[2016-08-11] MEDS ORDERED: NS 1,000 ML IV ONE (18:16)
[2016-08-11] MEDS ORDERED: HYDROmorphONE/DILAUDID 1 MG/ML SYR ONE (19:01)
[2016-08-11] MEDS ORDERED: HYDROmorphONE/DILAUDID 1 MG/ML SYR IVP ONE ×2 (19:02→19:48)
[2016-08-11 19:07] LABS: % IMMATURE GRANULYOCYTES 0.6 % (0.0-1.1); ABSOLUTE IMMATURE GRANULOCYTES 0.07 10^3/uL (0.00-0.10); ABSOLUTE NRBC COUNT 0.13 10^3/uL (0-0.01); ADD DIFF? NO; ADD MORPH? NO; ADD SCAN? NO; ATYPICAL LYMPHOCYTE FLAG 40 (0-99); FRAGMENT RBC FLAG 0 (0-99); HEMATOCRIT 26.6 % (38.0-47.0); HEMOGLOBIN 9.2 g/dL (12.6-16.3); LEFT SHIFT FLG 0 (0-99); LIPEMIA HEMOLYSIS FLAG 90 (0-99); MEAN CELL HEMOGLOBIN 30.7 pg (27.9-34.1); MEAN CELL HEMOGLOBIN CONCENTR. 34.6 g/dL (32.4-36.7); MEAN CELL VOLUME 88.7 fL (81.5-99.8); MEAN PLATELET VOLUME 9.7 fL (8.7-11.7); PLATELET CLUMPS FLAG 10 (0-99); PLATELET COUNT 352 10^3/uL (150-400); RED CELL DISTRIBUTION WIDTH 15.9 % (11.5-15.2)
[2016-08-11 19:21] LABS: ANION GAP 11 mEq/L (8-16); CALCIUM 9.6 mg/dL (8.5-10.4); CARBON DIOXIDE 25 mEq/l (22-31); CHLORIDE 97 mEq/L (97-110); CREATININE 0.4 mg/dL (0.6-1.0); GLOMERULAR FILTRATION RATE > 60; GLUCOSE 101 mg/dL (70-100); POTASSIUM 3.7 mEq/L (3.5-5.2); SODIUM 133 mEq/L (134-144)
[2016-08-11] MEDS ORDERED: POLYETHYLENE GLYCOL 3350 17 GM PKT PO PRN (20:01)
[2016-08-11] MEDS ORDERED: BISACODYL 10 MG SUPP PR PRN (20:01)
[2016-08-11] MEDS ORDERED: MAGNESIUM HYDROXIDE 30 ML UDCUP PO PRN (20:01)
[2016-08-11] MEDS ORDERED: LACTULOSE 20 GM/30 ML UDCUP PO PRN (20:01)
--- NOTE | 2016-08-11 20:44 | GHP ---
DATE OF ADMISSION: 08/11/2016 CHIEF COMPLAINT: Failure to thrive. HISTORY OF PRESENT ILLNESS: This is a 70-year-old female who underwent T12 through S1 fusion by Dr. Platt on 08/05/2016 and presented to the emergency department today with abdominal pain and constipation. The patient states that since her surgery last week, she had not had a bowel movement until she went to the emergency department in [place] last night where she received an enema. She was sent home from the emergency department last night, where she has continued to do poorly at home. She is not eating. She says that she is very nauseous. She is unable to empty her bladder. She reports sever e pain in her low back and is unable to ambulate well. She denies any fevers but has had some chill s. She does have some pain with urination. During her hospital stay our service was consulted where we helped treat her hypertension, pain, and monitored her atrial fibrillation. PAST MEDICAL HISTORY: 1. Hypertension. 2. Hearing loss. 3. Atrial fibrillation status post ablation. 4. Obstructive sleep apnea on CPAP. 5. History of ovarian and uterine cancer. 6. Thyroid goiter. 7. Non malignant pancreatic tumor. 8. L5 through S1 radiculopathy. 9. Basal cell carcinoma on the back. PAST SURGICAL HISTORY: 1. Recent T12 through S1 fusion. 2. Partial thyroidectomy. 3. Partial pancreatectomy and splenectomy. 4. Cholecystectomy. 5. Knee surgery. 6. Hysterectomy. 7. Mohs procedure on the back. HOME MEDICATIONS: Were reviewed. Refer to isango! for details. ALLERGIES: Oxycodone and sulfa. SOCIAL HISTORY: The patient lives at [place]. She denies any alcohol, tobacco or illicit drug use . FAMILY HISTORY: Reviewed and noncontributory. REVIEW OF SYSTEMS: Comprehensive 10-point review of systems was done and is negative except for as mentioned in the HPI. PHYSICAL EXAM: VITAL SIGNS: Blood pressure 169/97, pulse 95, respiratory rate 20, O2 saturation 94 % on room air. Temperature afebrile. GENERAL: No acute distress but appears to be uncomfortable. HEAD: Normocephalic atraumatic. EYES: PERRLA. Sclerae anicteric. MOUTH: Moist mucous membrane s. NECK: Supple. No lymphadenopathy. CARDIOVASCULAR: S1-S2 irregularly irregular. No JVD. Tra ce lower extremity edema. PULMONARY: Lungs are clear. No wheezes, rales, or rhonchi. ABDOMEN: D istended. Bowel sounds are slightly diminished. There is no guarding or rebound tenderness. EXTRE MITIES: No clubbing or cyanosis. NEURO: Cranial nerves 2-12 grossly intact. DIAGNOSTICS: WBC is 12.5, hemoglobin 9.2, hematocrit 26.6, platelets 352. Sodium 133, potassium 3. 7, chloride 97, CO2 25, BUN 5, creatinine 0.4, glucose 101. ASSESSMENT AND PLAN: This is a 70-year-old female, postoperative day 6 of T12 through S1 fusion pre senting with: 1. Failure to thrive at home. 2. Opioid induced constipation. 3. Possible urinary retention. 4. Dysuria suspicious for urinary tract infection. 5. Mild hyponatremia. 6. Postoperative pain. 7. Improving normocytic anemia likely due to recent surgery. 8. Leukocytosis. 9. History of atrial fibrillation on Xarelto. PLAN: 1. Admit to medical-surgical floor. 2. Check bladder ultrasound to evaluate for urinary retention and place Street catheter as indicated . 3. Start bowel protocol and repeating an enema as needed. 4. Physical therapy and occupational therapy evaluation. 5. Send urinalysis for analysis to evaluate for urinary tract infection. 6. We will continue patient's home medications for hypertension and atrial fibrillation, including her Xarelto which will be continued. CODE STATUS: The patient requests to be DNR status. /[id number]/MODL
[2016-08-11 21:21] LABS: COLOR PALE YELLOW; LEUKOCYTE ESTERASE,URINE 3+ (NEGATIVE); NITRITE,URINE NEGATIVE (NEGATIVE)
[2016-08-11 21:37] LABS: BACTERIA 1+ /hpf (NONE SEEN)
[2016-08-12] MEDS: SENNOSIDES/DOCUSATE SODIUM TAB PO SCH ×3 (00:21→22:11)
[2016-08-12] MEDS: GOLYTELY 4000 ML BTL PO ONE ×2 (00:21→06:46)
[2016-08-12] MEDS: PANTOPRAZOLE SODIUM 40 MG TAB PO SCH ×2 (00:22→20:55)
[2016-08-12] MEDS: FLECAINIDE ACETATE 100 MG TAB PO SCH ×3 (00:23→20:55)
[2016-08-12] MEDS: ALPRAZolam 0.25 MG TAB PO PRN ×2 (00:24→21:00)
[2016-08-12] MEDS: METHOCARBAMOL 750 MG TAB PO PRN ×2 (00:33→06:12)
[2016-08-12 06:17] LABS: ALANINE AMINOTRANSFERASE 69 IU/L (9-52); ALBUMIN 3.4 g/dL (3.5-5.0); ALKALINE PHOSPHATASE 102 IU/L (38-126); ANION GAP 10 mEq/L (8-16); ASPARTATE AMINOTRANSFERASE 35 IU/L (14-46); BILIRUBIN,TOTAL 0.8 mg/dL (0.1-1.4); CALCIUM 9.2 mg/dL (8.5-10.4); CARBON DIOXIDE 25 mEq/l (22-31); CHLORIDE 96 mEq/L (97-110); CREATININE 0.5 mg/dL (0.6-1.0); GLOMERULAR FILTRATION RATE > 60; GLUCOSE 85 mg/dL (70-100); POTASSIUM 3.4 mEq/L (3.5-5.2); SODIUM 131 mEq/L (134-144); TOTAL PROTEIN 5.7 g/dL (6.3-8.2)
--- NOTE | 2016-08-12 08:55 | HOSPPROG ---
Hospitalist Progress Note Assessment/Plan: Patient is a 70-year-old female who recently underwent a spinal surgery. Since her surgery she has been suffering with constipation. She was admitted for further care. today is my 1st encounter with the patient. Chart reviewed. Reviewed her care with Dr. Fernandez * failure to thrive - patient was having difficultyat home after surgery * opioid induced constipation - reviewed her abdominal x-ray which does indeed confirm this - this resolved after receiving GoLYTELY * concern of exposure of fecal contamination to back incision - infectious Disease ordered blood cultures and will place on antibiotics and monitor * status post T12 through S1 fusion/ this was done on her previous admission - OT and PT to see * hypokalemia - add electrolyte protocol * urinary retention - most likely secondary to opioid use - remove hall this a.m. - ask nursing staff to do PVRs * hyponatremia - likely from dehydration * leukocytosis - repeat labs in the morning * history of atrial fibrillation /on Xarelto * DVT prophylaxis/ on Xarelto Plan: patient will require another midnight stay/ gait slightly unsteady, low Na , leukocytosis. Repeat labs in a.m./ hall removal/ PT and OT to see/ infectious disease team seeing. Subjective: patient is feeling better after having multiple bowel movements. Objective: Vital Signs Temp Pulse Resp BP Pulse Ox 36.6 C 92 20 137/98 H 96 08/12/16 08:31 08/12/16 08:31 08/12/16 08:31 08/12/16 08:31 08/12/16 08:31 Laboratory Results 08/11/16 18:52 08/12/16 05:09 08/11/16 08/12/16 08/13/16 05:59 05:59 05:59 Intake Total 1700 Output Total 1850 200 Balance -150 -200 - Physical Exam Constitutional: obese, uncomfortable Eyes: PERRL Ears, Nose, Mouth, Throat: hearing normal Cardiovascular: regular rate and rhythym Respiratory: no respiratory distress Gastrointestinal: normoactive bowel sounds, soft, non-tender abdomen Skin: warm, other ( back incision with Tegaderm dressing in place) Musculoskeletal: generalized weakness Neurologic: AAOx3 Psychiatric: interacting appropriately, not anxious, not encephalopathic ICD10 Worksheet Patient Problems: Problems Problem Status Onset Constipation Acute Generalized weakness Acute Fusion of lumbar spine Acute
--- NOTE | 2016-08-12 11:50 | GCON ---
INFECTIOUS DISEASE CONSULTATION DATE OF CONSULTATION: 08/12/2016 REFERRING PHYSICIAN: Juan Platt MD REASON FOR CONSULTATION: Patient with recent postop surgical site covered in stool for further eval uation and opinion. CHIEF COMPLAINT: Constipation, now with stool over her incision site. HISTORY OF PRESENTING ILLNESS: This is a 70-year-old female who recently underwent a T12 through S1 redo decompression surgery with extension of fusion by Dr. Platt on August 05, 2016. She remained in the hospital for 3-4 days, and then did go home. She did develop constipatio n postoperatively, went to [place] ER yesterday morning and received an enema and stated that she d id have a bowel movement there. She was on the commode or a bed obando, but she went home and was feel ing more nauseous and was still having distention of her belly. Came to the ER here last night. Ale umaña was given 3 L of GoLYTELY, and this morning had poop all over her recent incision site of the back . Today, she feels chilled. She had a temp of 99 last night. Her white blood cell count was 12.5 last night as well. Infectious Disease is now consulted for further evaluation and opinion. REVIEW OF SYSTEMS: GENERAL: Denies any fevers recently. She has had some chills as of this mornin g. HEAD: Denies any headaches. EYES: No change in vision. ENT: No sore throat, difficulty swal lowing, ear pain, or ear drainage. CARDIOVASCULAR: Denies any chest pain or rapid heartbeat. RESP IRATORY: Denies any shortness of breath, cough, or sputum production. ABDOMEN: Abdomen is feeling less full than the last several days. She states is feeling softer. She denies any nausea at pres ent but did have some yesterday. Denies any vomiting. Was constipated. Has moved her bowels sever al times this morning and is starting to feel better. Denies any current suprapubic tenderness. Di d have a Street catheter in up until this morning. She did not have some burning with urination yest erday and has not urinated since the Street catheter has come out this morning. MUSCULOSKELETAL: De nies any new joint pains or muscle aches. SKIN: Denies any other new rashes or any other open woun ds. PAST MEDICAL HISTORY: Significant for obstructive sleep apnea, on CPAP; atrial fibrillation, status post ablation; hearing loss; hypertension; thyroid goiter; history of ovarian and uterine cancer; h istory of non-malignant pancreatic tumor; history of basal cell carcinoma on the back; history of L5 through S1 radiculopathy. PAST SURGICAL HISTORY: Significant for back surgery in March 2016, now with a recent redo decompr ession with extension of fusion from T12 to S1, partial thyroidectomy, partial pancreatectomy and sp lenectomy, cholecystectomy, knee surgery, hysterectomy, Mohs procedure on the back. ALLERGIES: Sulfa, which gives her anaphylaxis. She also has an allergy listed to oxycodone. SOCIAL HISTORY: She is a nonsmoker. Does not drink any alcohol. Denies any illicit drug use as ale umaña lives with her in their home in [place]. She has not traveled outside of [place] recent ly. FAMILY HISTORY: Significant for diabetes and coronary artery disease. MEDICATIONS: As per AUG. PHYSICAL EXAMINATION: VITAL SIGNS: Temperature is 36.6. Pulse is 92. Blood pressure 137/98. Sat urations are 96% on room air. Respiratory rate is 20. GENERAL: Patient is resting in bed, in no a cute respiratory distress. Awake, alert, and oriented. HEENT: Eyes without conjunctival injection or petechiae. Oropharynx is clear. There is no posterior pharyngeal erythema or thrush. CARDIOVA SCULAR: S1, S2. Regular rate and rhythm. No obvious murmurs appreciated. RESPIRATORY: Clear to auscultate bilaterally. No rhonchi or rales appreciated. ABDOMEN: Positive bowel sounds in all 4 quadrants. Soft, nontender, nondistended. No obvious organomegaly appreciated. No suprapubic tend erness. EXTREMITIES: Mild lower extremity edema. Surgical scar is noted over bilateral knees, whi ch are well healed and intact. No overlying erythema. SKIN: Pertinent findings over the back, it does appear she has some type of contact dermatitis related to previous surgical postop dressing. T here is no acute cellulitis noted. Steri-Strips have been removed. There are no sutures. Skin edg es are well opposed. The skin overlying the surgical site is quite warm. No increased tenderness c ompared to previously. LABORATORY DATA: White blood cell count 12.5, hemoglobin 9.2. Platelets are 352. Neutrophil count is 69%. Sodium 131, potassium 3.4, chloride 96, bicarb 25. BUN is 5, creatinine 0.5. AST 35, ALT 69, alkaline phosphatase 102, total bilirubin 0.8. Urinalysis done yesterday, 2+ blood, trace keto darby, 3+ leukocyte esterase. Urine RBCs 1-3. No epithelial cells. Urine bacteria 1+. No microbiol ogy done. Abdominal x-ray shows mild adynamic ileus, improved constipation since July. ASSESSMENT: Stool contaminating recent postoperative site, with chills, increased risk for infectio n. PLAN: At this time, we will check blood cultures x2 sets stat to further evaluate. We will place h er on broad-spectrum antimicrobial therapy given her current symptoms to start with. We will adjust antimicrobials based on any new data. Plan for short course of therapy barring any, again, additio nal data which would warrant longer therapy. We will start with vancomycin and Zosyn to start with. Plan of care was discussed and coordinated with the hospitalist team, as well as the neurosurgical team. Plan of care discussed with the patient, as well as the nursing team. Thank you very much for the opportunity to care for your patient in consultation. /[id number]/MODL
[2016-08-12] MEDS: PIPERACILLIN/TAZO 4.5 GM/DEX 100 ML IV SCH ×2 (12:28→16:57)
--- NOTE | 2016-08-12 12:31 | GCON ---
DATE OF CONSULTATION: 08/12/2016 REASON FOR CONSULTATION: Recent lumbar surgery. Admitted to Medicine for failure to thrive with co nstipation and dehydration. HOSPITAL COURSE/HISTORY AND MAJOR MEDICAL FINDINGS: The patient is a 70-year-old female who present ed to [facility] emergency room with abdominal pain and constipation. She recently underwent a T12 through S1 fusion by Dr. Juan Platt and Dr. Asuncion Anna on 08/05/2016. The patient states that since her surgery she has not had a bowel movement, and she is having more abdominal dis comfort from this. She recently went to [facility] emergency room for this as well and received an enema, and she did not have any relief of her constipation. She states that she is unable to the eat and is feeling very nauseous and was having difficulty urinating. She was reporting severe low back pain at the site of her surgery and unable to ambulate well. Today the patient was able to garcia ve a bowel movement. When we walked into the room, she had stated that she had gotten some GoLYTELY and recently had diarrhea stool all over the bed. REVIEW OF SYSTEMS: Negative other than what is stated in the HPI. Please see for pertinent negativ es and pertinent positives. PAST MEDICAL HISTORY: Significant for hypertension, hearing loss, atrial fibrillation status post a blation, obstructive sleep apnea on CPAP, history of ovarian cancer and uterine cancer, history of a thyroid goiter, history of non malignant pancreatic tumor, history of lower extremity radiculopathy , history of basal cell carcinoma on her back. PAST SURGICAL HISTORY: Significant for T12 through S1 fusion on 08/05/2016, a partial thyroidectomy , partial pancreatectomy and splenectomy, a cholecystectomy, prior knee surgery, hysterectomy, and M ohs surgery on her back. The patient did have some complications from her knee surgery, and stated that she did have an infection at that time. HOME MEDICATIONS: Include Tylenol 500 mg 1-2 p.o. q.4 hours p.r.n. pain or fever, multivitamins 1 p .o. daily, [place] 10/325 one to 2 tabs q.4-6 hours p.r.n. pain, Senokot 1-2 tabs p.o. b.i.d., spirono lactone 25 mg 1 p.o. daily, Xanax 0.5 mg 1 p.o. q.h.s. p.r.n. anxiety, diltiazem 180 mg extended rel ease capsule 1 p.o. daily, flecainide acetate 50 mg 1 p.o. daily, methocarbamol 750 mg 1 p.o. q.8 ho urs p.r.n. muscle spasms, Prilosec 20 mg 1 p.o. q.h.s., oxycodone 1-2 tabs q.4-6 hours p.r.n. pain, Xarelto 10 mg 1 p.o. daily. ALLERGIES: Sulfa drugs. FAMILY HISTORY: Noncontributory. SOCIAL HISTORY: The patient does not smoke. She does not use any alcohol or illicit drugs. The sara espinoza lives out in [place]. PHYSICAL EXAMINATION: VITAL SIGNS: BP 137/98, pulse is 92, she is 96% on room air. Her temp is 36 .6. GENERAL: The patient is in no acute distress. She is alert and oriented x3. She answers ques tions appropriately. Affect is appropriate for the given situation. HEENT: Face is symmetric. EX TREMITIES: The patient does move her bilateral upper and bilateral lower extremities. She is a 5/5 and equal. ABDOMEN: The patient recently had a large bowel movement, and watery stool completely saturated her Steri-Strips and her incision. Her incision appears to be intact. There is some ecch ymosis around the surgical incision, and some flaky dry skin. There does not appear to be any dehis cence of the incision noted. ASSESSMENT AND PLAN: The patient is a 70-year-old female who recently underwent a T12 through S1 fu leonid with Dr. Juan Platt and Dr. Anna on 08/05/2016 who presented to the hospital for curly lure to thrive and constipation. Our biggest concern at this point in time is the fact that her inc ision has recently been saturated with loose stool. Both Dr. Juan Platt and myself have dis cussed with the Medicine team as well as Infectious Disease about monitoring the incision. The merry ent will have a warm soapy shower to rinse off the incision. All Steri-Strips will be removed. The incision will be re-dressed with a watertight dressing given the fact that she may have continued d iarrhea throughout the day. We will continue to monitor the patient's incision. If the patient has any new or worsening symptoms, any change in neurologic or motor exam, please not dhruv Neurosurgery. /[id number]/MODL
[2016-08-12] MEDS: VANCOMYCIN 1.5 GM in D5W 250 ML IV SCH ×2 (14:03→22:49)
[2016-08-12] MEDS: oxyCODONE IR 5 MG TAB PO PRN ×2 (15:36→20:55)
[2016-08-12] MEDS ORDERED: BACITRACIN OINTMENT 1 PACKET TP ONE (16:50)
[2016-08-12] MEDS: RIVAROXABAN 20 MG TAB PO SCH (16:56)
[2016-08-12] MEDS: DILTIAZEM CD 180 MG CAP PO SCH (16:56)
[2016-08-12] MEDS ORDERED: PROTOCOL POTASSIUM 1 DOSE MISC PRN (17:20)
[2016-08-12 19:01] LABS: POTASSIUM 2.7 mEq/L (3.5-5.2)
[2016-08-12] MEDS ORDERED: POTASSIUM CL 10 MEQ TAB PO ONE (22:18)
[2016-08-13] MEDS: oxyCODONE IR 5 MG TAB PO PRN ×5 (00:58→21:13)
[2016-08-13] MEDS: PIPERACILLIN/TAZO 4.5 GM/DEX 100 ML IV SCH ×4 (00:58→18:04)
[2016-08-13] MEDS: ACETAMINOPHEN 325 MG TAB PO PRN ×2 (03:50→16:40)
[2016-08-13 05:19] LABS: % IMMATURE GRANULYOCYTES 0.6 % (0.0-1.1); ABSOLUTE IMMATURE GRANULOCYTES 0.08 10^3/uL (0.00-0.10); ABSOLUTE NRBC COUNT 0.15 10^3/uL (0-0.01); ADD DIFF? NO; ADD MORPH? YES; ADD SCAN? NO; ATYPICAL LYMPHOCYTE FLAG 70 (0-99); FRAGMENT RBC FLAG 0 (0-99); HEMATOCRIT 23.2 % (38.0-47.0); HEMOGLOBIN 7.9 g/dL (12.6-16.3); LEFT SHIFT FLG 0 (0-99); LIPEMIA HEMOLYSIS FLAG 90 (0-99); MEAN CELL HEMOGLOBIN 29.8 pg (27.9-34.1); MEAN CELL HEMOGLOBIN CONCENTR. 34.1 g/dL (32.4-36.7); MEAN CELL VOLUME 87.5 fL (81.5-99.8); MEAN PLATELET VOLUME 9.1 fL (8.7-11.7); PLATELET CLUMPS FLAG 0 (0-99); PLATELET COUNT 385 10^3/uL (150-400); RED BLOOD CELL COUNT 2.65 10^6/uL (4.18-5.33); RED CELL DISTRIBUTION WIDTH 15.7 % (11.5-15.2)
[2016-08-13 05:23] LABS: NRBC-AUTO% 1.1 % (0.0-0.2)
[2016-08-13 05:44] LABS: ALANINE AMINOTRANSFERASE 54 IU/L (9-52); ALBUMIN 3.1 g/dL (3.5-5.0); ALKALINE PHOSPHATASE 84 IU/L (38-126); ANION GAP 8 mEq/L (8-16); ASPARTATE AMINOTRANSFERASE 32 IU/L (14-46); BILIRUBIN,TOTAL 0.8 mg/dL (0.1-1.4); CALCIUM 9.2 mg/dL (8.5-10.4); CARBON DIOXIDE 28 mEq/l (22-31); CHLORIDE 96 mEq/L (97-110); CREATININE 0.7 mg/dL (0.6-1.0); GLOMERULAR FILTRATION RATE > 60; GLUCOSE 109 mg/dL (70-100); POTASSIUM 3.4 mEq/L (3.5-5.2); SODIUM 132 mEq/L (134-144); TOTAL PROTEIN 5.5 g/dL (6.3-8.2)
[2016-08-13 05:45] LABS: ACANTHOCYTES 1+; HYPOCHROMIA 1+; MACROCYTES 1+; POLYCHROMASIA 1+
[2016-08-13 05:46] LABS: PLATELET ESTIMATE ADEQUATE (ADEQ); TARGET CELLS 1+
[2016-08-13] MEDS ORDERED: POTASSIUM CL 10 MEQ TAB PO ONE ×2 (07:25→20:37)
--- NOTE | 2016-08-13 08:04 | NEUSURGPN ---
Assessment/Plan: 70 yo female s/p T12-S1 revision TLIF by Dr. Carson and Dr. Anna on 08/05 with uncontrolled pain at home and constipation. Constipation now resolved. - neuro stable - pain controlled - seen by ID and started on Vanc/Zosyn. Blood cultures pending - wear brace when out of bed - PT/OT - ok to dc to rehab once cleared by ID/IM Subjective: Sitting in bedside chair. Pain controlled. No LE symptoms. Objective: Awake. Alert. PERRL. EOMI Following commands Muscle strength full at 5/5 Incision c/d/i Catheter Insertion Date: 08/11/16 - Physician Discussed Patient with : Wilfrido Neurosurgery Physical Exam - Vitals, I&O, Labs I and O 08/12/16 08/13/16 08/14/16 05:59 05:59 05:59 Intake Total 1700 1500 Output Total 1850 2400 Balance -150 -900 Weight 97.522 kg Intake: Oral (ml) 700 1000 IV Intake (ml) 500 IV Infused (ml) 1000 Output: Urine (ml) 1850 2200 Catheter 1850 900 Toilet 1300 Liquid Stool (ml) 200 Bedside Commode 200 Other: Number of Voids Toilet 1 Number of Stools Toilet 1 Post Void Residual Scan Volume (ml) Toilet 497 Vital Signs Temp Pulse Resp BP Pulse Ox 36.7 C 88 18 153/73 H 93 08/13/16 03:20 08/13/16 03:20 08/13/16 03:20 08/13/16 03:20 08/13/16 03:20 Laboratory Results 08/13/16 05:02 08/13/16 05:02 ICD10 Worksheet Patient Problems: Problems Problem Status Onset Constipation Acute Generalized weakness Acute Fusion of lumbar spine Acute
[2016-08-13] MEDS: FLECAINIDE ACETATE 100 MG TAB PO SCH ×2 (08:30→21:12)
[2016-08-13] MEDS: SENNOSIDES/DOCUSATE SODIUM TAB PO SCH ×2 (08:31→21:39)
--- NOTE | 2016-08-13 09:13 | HOSPPROG ---
Hospitalist Progress Note Assessment/Plan: Patient is a 70-year-old female who recently underwent a spinal surgery. Since her surgery she has been suffering with constipation. She was admitted for further care. * failure to thrive - patient was having difficulty at home after surgery * opioid induced constipation - this resolved after receiving GoLYTELY * concern of exposure of fecal contamination to back incision - infectious Disease ordered blood cultures and is on antibiotics -spoke with Dr Carson and he would like her to have bacitracin to her back incision bid x 7days/this has been ordered *anemia -on previous admit on 08/06, hgb/ hct were low but since has decreased -will follow -if cont to trend -heme stools * status post T12 through S1 fusion/ this was done on her previous admission - OT and PT * hypokalemia - add electrolyte protocol * urinary retention - resolved * hyponatremia - likely from dehydration * leukocytosis - repeat labs in the morning * history of atrial fibrillation /on Xarelto * DVT prophylaxis/ on Xarelto Plan: To go to [facility] [place] tomorrow if stable/ get repeat labs in a.m. Subjective: Alyse is feeling much better today/ still weak. Objective: Vital Signs Temp Pulse Resp BP Pulse Ox 36.7 C 84 16 144/72 H 94 08/13/16 08:01 08/13/16 08:01 08/13/16 08:01 08/13/16 08:01 08/13/16 08:01 Laboratory Results 08/13/16 05:02 08/13/16 05:02 08/12/16 08/13/16 08/14/16 05:59 05:59 05:59 Intake Total 1700 1500 Output Total 1850 2400 Balance -150 -900 - Physical Exam Constitutional: obese Eyes: PERRL Ears, Nose, Mouth, Throat: hearing normal Cardiovascular: irregularly irregular Respiratory: no respiratory distress, no rales or rhonchi Gastrointestinal: normoactive bowel sounds Skin: warm, No normal color (pale) Musculoskeletal: generalized weakness Neurologic: AAOx3 Psychiatric: interacting appropriately, not anxious ICD10 Worksheet Patient Problems: Problems Problem Status Onset Constipation Acute Generalized weakness Acute Fusion of lumbar spine Acute
[2016-08-13] MEDS: VANCOMYCIN 1.5 GM in D5W 250 ML IV SCH ×2 (11:29→23:05)
[2016-08-13] MEDS: BACITRACIN OINTMENT 1 PACKET TP SCH ×2 (14:26→21:39)
--- NOTE | 2016-08-13 16:25 | PCMIDPN ---
Assessment/Plan: Assessment: soiling of her back incision with stool postoperatively. Leukocytosis and chills. Covered broadly and empirically with Vancomycin and Zosyn. Will follow closely. Hopefully a short 7 day course will be that is necessary. Plan: 1) Continue empiric Vancomycin and Zosyn. 2) Follow temp curve, WBC counts and wound appearance. Subjective: Patient without much complaints except for postoperative pain. No fevers or chills overnight. Objective: Vancomycin #2 Zosyn #2 Vital Signs Temp Pulse Resp BP Pulse Ox 36.7 C 91 18 126/58 H 96 08/13/16 15:09 08/13/16 15:09 08/13/16 15:09 08/13/16 15:09 08/13/16 15:09 Laboratory Results 08/13/16 05:02 08/13/16 05:02 08/12/16 08/13/16 08/14/16 05:59 05:59 05:59 Intake Total 1700 1500 Output Total 1850 2400 300 Balance -150 -900 -300 - Physical Exam General Appearance: WD/WN, alert, no apparent distress, non-toxic Respiratory: lungs clear, normal breath sounds, No respiratory distress Cardiac/Chest: regular rate, rhythm, No tachycardia Back: No normal inspection Skin: normal color, warm/dry, No rash Neuro/Psych: alert, normal mood/affect, oriented x 3 ICD10 Worksheet Patient Problems: Problems Problem Status Onset Constipation Acute Generalized weakness Acute Fusion of lumbar spine Acute
[2016-08-13] MEDS: DILTIAZEM CD 180 MG CAP PO SCH (18:03)
[2016-08-13] MEDS: [UNRECOGNIZED DRUG - OTHER] PO SCH (18:03)
[2016-08-13] MEDS: RIVAROXABAN 20 MG TAB PO SCH (18:04)
[2016-08-13 18:46] LABS: POTASSIUM 3.5 mEq/L (3.5-5.2)
[2016-08-13] MEDS ORDERED: POTASSIUM CL 10 MEQ TAB ONE (21:10)
[2016-08-13] MEDS: ALPRAZolam 0.25 MG TAB PO PRN (21:13)
[2016-08-13] MEDS: PANTOPRAZOLE SODIUM 40 MG TAB PO SCH (21:13)
[2016-08-14] MEDS: PIPERACILLIN/TAZO 4.5 GM/DEX 100 ML IV SCH ×3 (00:42→12:48)
[2016-08-14] MEDS: oxyCODONE IR 5 MG TAB PO PRN ×4 (01:57→17:32)
[2016-08-14 04:44] VITALS: RESP 16
[2016-08-14 06:00] LABS: % IMMATURE GRANULYOCYTES 0.7 % (0.0-1.1); ABSOLUTE IMMATURE GRANULOCYTES 0.08 10^3/uL (0.00-0.10); ADD DIFF? NO; ADD MORPH? NO; ADD SCAN? NO; ATYPICAL LYMPHOCYTE FLAG 30 (0-99); FRAGMENT RBC FLAG 0 (0-99); HEMATOCRIT 25.5 % (38.0-47.0); HEMOGLOBIN 8.7 g/dL (12.6-16.3); LEFT SHIFT FLG 0 (0-99); LIPEMIA HEMOLYSIS FLAG 90 (0-99); MEAN CELL HEMOGLOBIN CONCENTR. 34.1 g/dL (32.4-36.7); MEAN CELL VOLUME 87.9 fL (81.5-99.8); MEAN PLATELET VOLUME 9.3 fL (8.7-11.7); NRBC-AUTO% 0.9 % (0.0-0.2); PLATELET CLUMPS FLAG 0 (0-99); PLATELET COUNT 513 10^3/uL (150-400); RED CELL DISTRIBUTION WIDTH 15.8 % (11.5-15.2)
[2016-08-14 06:17] LABS: ANION GAP 11 mEq/L (8-16); CALCIUM 9.6 mg/dL (8.5-10.4); CARBON DIOXIDE 27 mEq/l (22-31); CHLORIDE 96 mEq/L (97-110); GLOMERULAR FILTRATION RATE 55; GLUCOSE 105 mg/dL (70-100); POTASSIUM 3.9 mEq/L (3.5-5.2); SODIUM 134 mEq/L (134-144)
[2016-08-14] MEDS ORDERED: POTASSIUM CL 10 MEQ TAB PO ONE ×2 (07:01→09:30)
--- NOTE | 2016-08-14 07:37 | SOAPPROG ---
SOAP Progress Note Assessment/Plan: Assessment: 70 yo F sp T12-S1 fusion Plan: stable continue IV abx for stool over wound PT/OT SNF placement pending scd/sarah/lovenox for dvt prophylaxis please call with neuro changes discussed with Dr Carson 08/14/16 07:36 Subjective: continued back pain, no leg pain, no weakness. Objective: Vital Signs Temp Pulse Resp BP Pulse Ox 36.8 C 89 16 128/67 H 91 L 08/14/16 04:00 08/14/16 04:00 08/14/16 04:00 08/14/16 04:00 08/14/16 04:00 Laboratory Results 08/14/16 05:21 08/14/16 05:21 08/13/16 08/14/16 08/15/16 05:59 05:59 05:59 Intake Total 1500 Output Total 2400 1253 Balance -900 -1253 AAOx4, +FC PERRL, EOMI, no facial droop 5/5 + light touch C/D/I mild induration around incision ICD10 Worksheet Patient Problems: Problems Problem Status Onset Constipation Acute Generalized weakness Acute Fusion of lumbar spine Acute
[2016-08-14] MEDS: SENNOSIDES/DOCUSATE SODIUM TAB PO SCH (09:10)
[2016-08-14] MEDS: FLECAINIDE ACETATE 100 MG TAB PO SCH (09:10)
[2016-08-14] MEDS: BACITRACIN OINTMENT 1 PACKET TP SCH (09:10)
[2016-08-14] MEDS: [UNRECOGNIZED DRUG - OTHER] PO SCH (09:11)
--- NOTE | 2016-08-14 14:47 | PCMIDPN ---
Assessment/Plan: Assessment/Plan: * Postoperative fecal soiling of back wound: Completing her 3rd day of vancomycin and Zosyn today given fecal soiling of postoperative wound. Develops some pruritis and nausea with most recent Zosyn infusion. Favor discontinuation of antibiotics at this point in time as suspect prophylactic benefit has been achieved with antibiotic toxicity or C difficile colitis risk outweighing ongoing benefit of antibiotic therapy. Will therefore discontinue vancomycin and Zosyn with clinical follow-up of wound over time. There are no signs of infection present currently. Will have follow-up in our office with Dr. Fernandez on 08/20/2016 at 10:30 for additional assessment. 08/14/16 14:43 Subjective: Patient describes developing pruritus over her abdominal wall with associated nausea shortly after her Zosyn infusion. No tongue swelling or difficulty breathing. Symptoms lasted approximately 30 minutes and now resolved. Objective: Vital Signs Temp Pulse Resp BP Pulse Ox 36.7 C 92 16 128/67 H 95 08/14/16 08:00 08/14/16 08:00 08/14/16 08:00 08/14/16 08:00 08/14/16 08:00 Laboratory Results 08/14/16 05:21 08/14/16 05:21 08/13/16 08/14/16 08/15/16 05:59 05:59 05:59 Intake Total 1500 Output Total 2400 1253 Balance -900 -1253 Vancomycin # 3 Zosyn # 3 Blood cultures x2 no growth - Physical Exam General Appearance: alert, no apparent distress EENT: pharynx normal, other (No tongue swelling) Respiratory: lungs clear, No respiratory distress Abdomen: non-tender, No distended Back: other (Incision intact without surrounding erythema other than what is expected postoperatively; no drainage or fluctuance other than small area of palpable fluid superiorly which is not hot or tender) Skin: other (No rash over abdominal wall) ICD10 Worksheet Patient Problems: Problems Problem Status Onset Constipation Acute Generalized weakness Acute Fusion of lumbar spine Acute
--- NOTE | 2016-08-14 14:50 | PDIAF ---
- Diagnosis Diagnosis: constipation Code Status: Do Not Resuscitate - Medication Management Discharge Medications: Medications to Continue on Transfer Diltiazem HCl [Cartia XT 180mg] 180 mg PO DAILY@18 03/12/16 [Last Taken 08/10/16 ] Omeprazole [Prilosec 20 mg] 20 mg PO HS 03/12/16 [Last Taken 08/10/16] Rivaroxaban [Xarelto 10mg (*)] 20 mg PO DAILY@18 03/12/16 [Last Taken 08/10/16] ALPRAZolam [Xanax 0.5 MG (*)] 0.5 mg PO HS PRN 04/01/16 [Last Taken 08/10/16] Flecainide Acetate 50 mg PO BID 07/17/16 [Last Taken 08/11/16 09:00] Methocarbamol [Robaxin 750 mg (*)] 750 mg PO QID PRN #60 tab 08/08/16 [Last Taken 08/11/16 09:00] Sennosides/Docusate Sodium [Senokot-S] 1 - 2 tab PO BID #0 tab 08/08/16 [Last Taken 08/10/16] Spironolactone [Aldactone 25 MG (*)] 25 mg PO DAILY PRN #0 tab 08/08/16 [Last Taken 08/10/16] HYDROcodone/APAP 10/325 [[place] 10/325 (*)] 1 - 2 tab PO Q4-6PRN PRN 08/11/16 [ Last Taken 08/11/16] Herbals/Supplements -Info Only 1 ea PO DAILY 08/11/16 [Last Taken 08/11/16] oxyCODONE IR [Oxycodone Ir (*)] 5 - 10 mg PO Q4-6PRN PRN 08/11/16 [Last Taken ] Bacitracin Ointment 1 sandra TP BID #0 pkt 08/14/16 [Last Taken Unknown] Polyethylene Glycol 3350 [Miralax 17 gm (*)] 17 gm PO DAILY PRN #0 pkt 08/14/16 [Last Taken Unknown] Discharge Medications: Refer to the Discharge Home Medication list for PRN reason. PICC Care - Routine: N/A - Orders Services needed: Registered Nurse, Physical Therapy, Occupational Therapy - Follow Up Care Current Providers and Referrals: Jennifer Muñoz [Primary Care Provider] - As per Instructions
[2016-08-14] MEDS ORDERED: diphenhydrAMINE 25 MG CAP PO PRN ×2 (14:56→15:24)
[2016-08-14] MEDS: VANCOMYCIN 1.5 GM in D5W 250 ML IV SCH (15:13)
[2016-08-14 16:13] VITALS: BP 132/57; PULSE 89; TEMP 98.4; O2SAT 94
--- NOTE | 2016-08-14 17:22 | GDS ---
[f rep st] DISCHARGE SUMMARY DISCHARGE DIAGNOSES: 1. Failure to thrive. 2. Opioid-induced constipation. 3. Anemia. 4. Recent T12 through S1 surgical fusion. 5. Hypokalemia. 6. Urinary retention. 7. Hyponatremia. 8. Leukocytosis. 9. History of atrial fibrillation. CONSULTATIONS: 1. Neurosurgery. 2. Infectious Disease. PHYSICAL EXAM: GENERAL: The patient is alert. VITAL SIGNS: Afebrile at 36.9. Pulse is 89. Resp iratory rate 16. Blood pressure is 132/57. She is saturating 94% on room air. I have seen and janet luated the patient on the day of discharge. HOSPITAL COURSE: The patient is a 70-year-old female who presented to the emergency room with failu re to thrive. She was evaluated and diagnosed with: 1. Failure to thrive. This is in the postoperative setting. The patient was not doing well at [facility] and now requires care home facility rehabilitation. 2. Opioid-induced constipation. This has resolved. The patient will continue on stool softeners. 3. Concern for potential fecal contamination exposure. The patient received an Infectious Disease consultation during this hospitalization. She was placed on prophylactic IV antibiotic therapy. I have discussed with the patient as well as infectious disease provider no further antibiotic therapy is warranted at the time of disposition. 4. Anemia. This is stable, however, needs followup in the outpatient setting. She is aware of thi s. 5. Status post T12 through S1 fusion. She is doing well with regard to this condition, however, re quires continued physical therapy as well as occupational therapy. 6. Hypokalemia. This has been repleted. 7. Urinary retention. This has resolved and secondary likely to constipation. 8. Hyponatremia. This is secondary to dehydration and has resolved. 9. Leukocytosis. The patient's laboratory evaluation is improving. 10. History of atrial fibrillation. She is rate controlled and continued on her Xarelto. DISPOSITION: The patient will be discharged to [facility] for further rehabilitation and management. I have reviewed her disposition with Dr. Delbetr Velasquez of Infectious Disease. Please refer to his note for further information. There are no pending studies. DISCHARGE MEDICATIONS: Please refer to EMR form. The patient will continue her previously prescrib ed home medications. FOLLOWUP: Will be with her primary care physician as well as Neurosurgery. There are no pending st udies. I have spent greater than 35 minutes in the care, coordination, and management of this patient's dis position. /[id number]/MODL
[2016-08-14] MEDS: DILTIAZEM CD 180 MG CAP PO SCH (17:32)
[2016-08-14] MEDS: RIVAROXABAN 20 MG TAB PO SCH (17:32)
== END 2016-08-14 19:10 | DRG 641 ==
LOC: OBSVTOIN 20:01 → F3E 22:34
PROVIDERS: ADMIT Family Medicine; ATTEND Family Medicine
DX: R62.7 Adult failure to thrive (principal); K59.03 Drug induced constipation; T40.2X5A Adverse effect of other opioids, initial encounter; Z98.1 Arthrodesis status; E87.6 Hypokalemia; E87.1 Hypo-osmolality and hyponatremia; R33.9 Retention of urine, unspecified; D64.9 Anemia, unspecified; I10 Essential (primary) hypertension; G47.33 Obstructive sleep apnea (adult) (pediatric); Z85.42 Personal history of malignant neoplasm of other parts of uterus; Z85.43 Personal history of malignant neoplasm of ovary
CPT/HCPCS: 96374; 97116-GP; 97162-GP; 97166-GO; 97535-GO; G8978-GP-CJ; G8979-GP-CI; G8987-GO-CL; G8988-GO-CI; J1170; J2543; J3370

== ENCOUNTER 2016-10-22 09:24 | Outpatient (CLI) | payer OTHER ==
[2016-10-22] MEDS ORDERED: NALOXONE HCL 0.4 MG/ML INJ ONE (10:24)
[2016-10-22] MEDS ORDERED: fentaNYL 100 MCG/2 ML INJ ONE (10:24)
[2016-10-22] MEDS ORDERED: FLUMAZENIL 0.5 MG/5 ML MDV IVP ONE (10:24)
[2016-10-22] MEDS ORDERED: MIDAZOLAM 2 MG/2 ML VIAL ONE (10:25)
== END 2016-10-22 12:56 | disposition home or self-care (01) ==
LOC: FIMAGING 09:24
PROVIDERS: ATTEND Physician Assistant Surgical
DX: T84.226A Displacement of internal fixation device of vertebrae, initial encounter (principal); S22.43XA Multiple fractures of ribs, bilateral, initial encounter for closed fracture; M51.84 Other intervertebral disc disorders, thoracic region; R93.8 Abnormal findings on diagnostic imaging of other specified body structures; Z98.1 Arthrodesis status
CPT/HCPCS: 72128; 72146; J2250; J3010; J2310

== ENCOUNTER 2016-10-24 05:56 | Inpatient (IN) | payer OTHER ==
[2016-10-24] MEDS ORDERED: ceFAZolin 2 GM/DEXTROSE 100 ML IV ONE (06:00)
[2016-10-24] MEDS ORDERED: LIDOCAINE 1% 5 ML SDV ONE (06:02)
[2016-10-24] MEDS ORDERED: THROMBIN (BOVINE) 5,000 UNIT VIAL TP ONE (06:45)
[2016-10-24] MEDS ORDERED: BUPIVACAINE/EPI 0.25% 30 ML SDV ONE ×2 (06:45→16:14)
[2016-10-24] MEDS ORDERED: BUPIVACAINE 0.25% 30 ML SDV ONE (06:45)
[2016-10-24] MEDS ORDERED: BACITRACIN 50,000 UNITS/10 ML SYR IRR ONE ×4 (06:46→15:40)
[2016-10-24] MEDS ORDERED: THROMBIN (BOVINE) 20,000 UNIT VIAL TP ONE ×3 (06:49→13:31)
[2016-10-24] MEDS ORDERED: fentaNYL 100 MCG/2 ML INJ ONE ×2 (06:56→14:44)
[2016-10-24] MEDS ORDERED: PROPOFOL 200 MG/20 ML VIAL ONE (06:56)
[2016-10-24] MEDS ORDERED: PROPOFOL/EMULSION 500 MG/50 ML BOTTLE IV ONE ×5 (06:56→13:49)
[2016-10-24] MEDS ORDERED: REMIFENTANIL HCL 1 MG VIAL ONE ×4 (06:56→15:30)
[2016-10-24] MEDS ORDERED: AMINOCAPROIC ACID 5 GM/20 ML VIAL ONE ×2 (07:01→13:00)
[2016-10-24] MEDS ORDERED: LIDOCAINE 1% 5 ML SDV ID PRN (07:25)
[2016-10-24] MEDS ORDERED: LR 1,000 ML IV ONE (07:25)
[2016-10-24] MEDS ORDERED: CITRATE DEXTROSE SOLN 500 ML BAG ONE ×2 (08:45→13:22)
[2016-10-24] MEDS ORDERED: LIDOCAINE 2% 5 ML SDV ONE (08:52)
[2016-10-24] MEDS ORDERED: ROCURONIUM 50 MG/5 ML VIAL ONE (08:52)
[2016-10-24] MEDS ORDERED: ALBUMIN 25% 50 ML SOLN IV ONE (08:57)
[2016-10-24] MEDS ORDERED: KETAMINE 100 MG/10 ML SYR IVP ONE (08:58)
[2016-10-24] MEDS ORDERED: ALBUMIN 5% 250 ML BOTTLE IV ONE ×2 (08:58→16:16)
[2016-10-24 11:42] LABS: % IMMATURE GRANULYOCYTES 0.4 % (0.0-1.1); ABSOLUTE IMMATURE GRANULOCYTES 0.03 10^3/uL (0.00-0.10); ADD DIFF? NO; ADD MORPH? NO; ADD SCAN? NO; ATYPICAL LYMPHOCYTE FLAG 20 (0-99); FRAGMENT RBC FLAG 0 (0-99); HEMATOCRIT 32.5 % (38.0-47.0); HEMOGLOBIN 10.7 g/dL (12.6-16.3); LEFT SHIFT FLG 0 (0-99); LIPEMIA HEMOLYSIS FLAG 80 (0-99); MEAN CELL HEMOGLOBIN 27.9 pg (27.9-34.1); MEAN CELL HEMOGLOBIN CONCENTR. 32.9 g/dL (32.4-36.7); MEAN CELL VOLUME 84.9 fL (81.5-99.8); MEAN PLATELET VOLUME 10.4 fL (8.7-11.7); PLATELET CLUMPS FLAG 0 (0-99); PLATELET COUNT 282 10^3/uL (150-400); RED BLOOD CELL COUNT 3.83 10^6/uL (4.18-5.33); RED CELL DISTRIBUTION WIDTH 15.6 % (11.5-15.2)
[2016-10-24 11:52] LABS: INR 1.16 (0.83-1.16); PROTIME(PATIENT) 14.8 SEC (12.0-15.0)
[2016-10-24] MEDS ORDERED: ceFAZolin 1 GM VIAL ONE ×2 (14:15)
[2016-10-24] MEDS ORDERED: SUCCINYLCHOLINE CHLORIDE*ANESTHESIA ONLY*200 MG/10 ML SYR IVP ONE (14:15)
[2016-10-24] MEDS ORDERED: epHEDrine SULFATE 10 MG/ML SYR ONE ×2 (14:15)
[2016-10-24 14:40] LABS: ADD MORPH? NO; ADD SCAN? YES; ATYPICAL LYMPHOCYTE FLAG 0 (0-99); FRAGMENT RBC FLAG 0 (0-99); HEMATOCRIT 29.1 % (38.0-47.0); HEMOGLOBIN 9.8 g/dL (12.6-16.3); LEFT SHIFT FLG 30 (0-99); LIPEMIA HEMOLYSIS FLAG 80 (0-99); MEAN CELL HEMOGLOBIN 28.7 pg (27.9-34.1); MEAN CELL HEMOGLOBIN CONCENTR. 33.7 g/dL (32.4-36.7); MEAN CELL VOLUME 85.1 fL (81.5-99.8); MEAN PLATELET VOLUME 10.7 fL (8.7-11.7); PLATELET CLUMPS FLAG 0 (0-99); PLATELET COUNT 220 10^3/uL (150-400); RED BLOOD CELL COUNT 3.42 10^6/uL (4.18-5.33); RED CELL DISTRIBUTION WIDTH 15.7 % (11.5-15.2)
[2016-10-24] MEDS ORDERED: morphINE PF 10 MG/10 ML INJ ONE (14:44)
[2016-10-24 14:45] LABS: INR 1.18 (0.83-1.16)
[2016-10-24 15:23] LABS: ADD DIFF? YES; SCAN POSITIVE
[2016-10-24 15:30] LABS: ECHINOCYTES 3+; KERATOCYTES 1+; PLATELET ESTIMATE ADEQUATE (ADEQ); SCHISTOCYTES 1+
[2016-10-24] MEDS ORDERED: GLYCOPYRROLATE 0.2 MG/1 ML VIAL ONE (15:39)
[2016-10-24] MEDS ORDERED: ONDANSETRON DISINTEGRATING 4 MG TAB PO PRN (16:42)
[2016-10-24] MEDS ORDERED: HYDROCODONE/APAP 10/325 TAB PO PRN (16:42)
[2016-10-24] MEDS ORDERED: LACTULOSE 20 GM/30 ML UDCUP PO PRN (16:42)
[2016-10-24] MEDS ORDERED: ONDANSETRON 4 MG/2 ML VIAL IVP PRN (16:42)
[2016-10-24] MEDS ORDERED: DIAZEPAM 5 MG TAB PO PRN (16:42)
[2016-10-24] MEDS ORDERED: DIAZEPAM 10 MG/2 ML SYR IVP PRN (16:42)
[2016-10-24] MEDS ORDERED: diphenhydrAMINE 25 MG CAP PO PRN (16:42)
[2016-10-24] MEDS ORDERED: morphINE PCA 30 MG/30 ML PCA IV PRN (16:42)
[2016-10-24] MEDS ORDERED: ACETAMINOPHEN 325 MG TAB PO PRN (16:42)
[2016-10-24] MEDS ORDERED: NALOXONE HCL 0.4 MG/ML INJ IVP PRN (16:42)
[2016-10-24] MEDS ORDERED: MAG HYDROX/AL HYDROX/SIMETH 30 ML UDCUP PO PRN (16:42)
[2016-10-24] MEDS ORDERED: MAGNESIUM HYDROXIDE 30 ML UDCUP PO PRN (16:42)
[2016-10-24] MEDS ORDERED: BISACODYL 10 MG SUPP PR PRN (16:42)
[2016-10-24] MEDS ORDERED: NS W/ 20 KCl/L 1,000 ML IV SCH (16:45)
[2016-10-24 16:53] LABS: % IMMATURE GRANULYOCYTES 0.8 % (0.0-1.1); ABSOLUTE IMMATURE GRANULOCYTES 0.07 10^3/uL (0.00-0.10); ADD DIFF? NO; ADD MORPH? NO; ADD SCAN? NO; ATYPICAL LYMPHOCYTE FLAG 0 (0-99); FRAGMENT RBC FLAG 0 (0-99); HEMATOCRIT 33.8 % (38.0-47.0); HEMOGLOBIN 11.4 g/dL (12.6-16.3); LEFT SHIFT FLG 20 (0-99); LIPEMIA HEMOLYSIS FLAG 80 (0-99); MEAN CELL HEMOGLOBIN 29.2 pg (27.9-34.1); MEAN CELL HEMOGLOBIN CONCENTR. 33.7 g/dL (32.4-36.7); MEAN CELL VOLUME 86.7 fL (81.5-99.8); MEAN PLATELET VOLUME 10.5 fL (8.7-11.7); PLATELET CLUMPS FLAG 0 (0-99); PLATELET COUNT 127 10^3/uL (150-400); RED CELL DISTRIBUTION WIDTH 15.9 % (11.5-15.2)
[2016-10-24 17:04] LABS: INR 1.32 (0.83-1.16); PROTIME(PATIENT) 16.4 SEC (12.0-15.0)
[2016-10-24] MEDS ORDERED: NS 500 ML IV PRN (17:11)
--- NOTE | 2016-10-24 17:16 | POSTOPPROG ---
Post Op Note Date of Operation: 10/24/16 Surgeon: Juan Platt Psychiatric Arnp: Asuncion Anna M.D. Anesthesiologist: Dr. Griffith Anesthesia: GET(General Endotracheal) Pre-op Diagnosis: T12 kyphosis/stenosis Post-op Diagnosis: Same Indication: Progressive kyphosis Procedure: Hardware removal, T4-S1 fusion with T12 osteotomy Inf/Abcess present in the surg proc area at time of surgery?: No EBL: Greater than 1000 Total fluids administered: 4 units PRBC, 3 paks from cell saver Complications: none Drains: Thom Mckeon (To bulb suction)
[2016-10-24] MEDS ORDERED: PHENYLEPHRINE HCL 100 MCG/ML SYR ONE (17:30)
[2016-10-24] MEDS ORDERED: DEXMEDETOMIDINE HCL 400 MCG in NS 100 ML IV SCH (17:30)
[2016-10-24] MEDS ORDERED: PHENTOLAMINE MESYLATE ID ONE (18:00)
[2016-10-24] MEDS ORDERED: NS ID ONE (18:00)
[2016-10-24] MEDS: DILTIAZEM CD 180 MG CAP PO SCH (19:10)
[2016-10-24 19:16] LABS: HEMATOCRIT 32.7 % (38.0-47.0); HEMOGLOBIN 10.9 g/dL (12.6-16.3); MEAN CELL HEMOGLOBIN 29.1 pg (27.9-34.1); MEAN CELL HEMOGLOBIN CONCENTR. 33.3 g/dL (32.4-36.7); MEAN CELL VOLUME 87.2 fL (81.5-99.8); RED BLOOD CELL COUNT 3.75 10^6/uL (4.18-5.33); RED CELL DISTRIBUTION WIDTH 15.7 % (11.5-15.2)
[2016-10-24 19:28] LABS: ANION GAP 9 mEq/L (8-16); CALCIUM 8.7 mg/dL (8.5-10.4); CARBON DIOXIDE 21 mEq/l (22-31); CHLORIDE 111 mEq/L (97-110); CREATININE 0.4 mg/dL (0.6-1.0); GLOMERULAR FILTRATION RATE > 60; GLUCOSE 196 mg/dL (70-100); POTASSIUM 4.1 mEq/L (3.5-5.2); SODIUM 141 mEq/L (134-144)
[2016-10-24] MEDS: FLECAINIDE ACETATE 100 MG TAB PO SCH (21:22)
[2016-10-24] MEDS: FAMOTIDINE 20 MG/NACL 50 ML IV SCH (21:22)
[2016-10-24] MEDS: ALPRAZolam 0.5 MG TAB PO PRN (21:25)
[2016-10-24] MEDS: morphINE SR 15 MG TAB PO SCH (21:25)
[2016-10-24] MEDS: SENNOSIDES/DOCUSATE SODIUM TAB PO SCH (22:04)
[2016-10-24] MEDS: POLYETHYLENE GLYCOL 3350 17 GM PKT PO SCH (22:04)
--- NOTE | 2016-10-25 02:54 | GOP ---
[f rep st] OPERATIVE REPORT DATE OF OPERATION: 10/24/2016 SURGEON: Juan Platt MD BRAKE LINING DRILLER: Asuncion Anna DO. ANESTHESIA: General endotracheal. PREOPERATIVE DIAGNOSIS: T12 fracture and instability with progressive kyphosis , status post prior T12-S1 instrumented fusion. Hardware failure. Intractable pain. POSTOPERATIVE DIAGNOSIS: T12 fracture and instability with progressive kyphosis , status post prior T12-S1 instrumented fusion. Hardware failure. Intractable pain. PROCEDURE PERFORMED: 1. Removal of posterior segmental (pedicle screw) fixation from T12 through L1 , with re-instrumentation and posterolateral fusion T4 through S1 with local autograft, BMP and morselized allograft. 2. T11, T12 and L1 laminectomies for decompression of kyphotic angulation and spinal cord. 3. T11-12 posterior/transforaminal lumbar interbody fusion. 4. T12 pedicle subtraction osteotomy for reduction of severe kyphotic deformity. 5. Use of intraoperative microscopy, fluoroscopy and computer volumetric stereotactic navigation with intraoperative neurophysiologic testing. FINDINGS: ESTIMATED BLOOD LOSS: 1500 cc. INDICATIONS: The patient is a 70-year-old woman who underwent a recent T12-S1 instrumentation and fusion with decompression who came back to clinic last week with debilitating pain and was found to have a T12 fracture and screw pullout, and erosion, with a progressive kyphotic deformity. She presents now for revision of the instrumentation with removal and replacement, and extension rostrally with a pedicle subtraction osteotomy to reduce the kyphosis. DESCRIPTION OF PROCEDURE: After informed consent was obtained, the patient was taken to the operating room and placed in the prone position on the Thom table. The thoracic and lumbosacral areas were prepped and draped in a sterile fashion. After fluoroscopic localization of the correct levels, the subcutaneous and intramuscular tissues were infiltrated with local anesthesia. A midline linear incision was then created from approximately T4 through S1. This was carried down to the fascial layer, which was incised using monopolar electrocautery and carried to the subcostal plane along the spinous processes and lamina bilaterally. Intraoperative fluoroscopy was again utilized to verify the correct levels. Following this, the instrumentation was identified at T12-L1, and carefully removed. Almost all the screws were loose, especially the most rostral ones. Following this, the microscope was brought in and an extensive debridement of the prior fusion area was performed along with extensive wide laminectomies at T11, T12 and L1, with facetectomies at T11 and T12 bilaterally. The [employer] neuronavigational system was then brought in and using computer volumetric stereotactic navigation, pedicle screws were placed from T4 through S1 bilaterally. All of the prior screw holes from the previous instrumentation had larger screws placed with decent screw purchase and at the bottom levels ( L5 and S1) they had very good structural purchase. I therefore felt that it was not in the patient's best interest to undergo iliac screws or transsacral pedicle screws. After placing the instrumentation, the pedicles at T12 were extensively drilled out and removed with rongeurs down to the T12 vertebral body, which was then removed in a wedge-shaped fashion, with the apex of the common at the T11-12 interspace. A complete diskectomy was also performed and the interspace packed with a structural PEEK interbody spacer with local autograft and bone morphogenic protein. This was partially because an extensive amount of bone was removed from T12 due to the erosion from the pedicle screws previously. There was such a large cavity, I was concerned that once the remainder of the bone I needed to remove was taken out, there would be some collapse or significant loss of height anteriorly, which would not have led to a good outcome. Instead, I placed a structural PEEK interbody spacer at the anterior margin of the T11-12 vertebral body and used that as a fulcrum for the reduction of her kyphosis. This was performed and worked very well. I had measured the distance between the T11 and L1 screw heads bilaterally, and I was able to achieve significant reduction posteriorly. The rods were then placed, first at the base of the construct and then extending rostrally and pulling the thoracic spine back into the tyra. Once the osteotomy was more closed down, there was still quite a large gap and another structural PEEK interbody spacer packed with local autograft and bone morphogenic protein was placed in the T11-12 level. This was partly for the T11-12 posterior/ transforaminal lumbar interbody fusion and partly to fill in the defect in the vertebral body. The wound was then copiously irrigated and meticulous hemostasis was achieved. After verification of good position of all the screws, rods and interbody spacers, the transverse processes and remaining lamina were extensively decorticated from T4 through S1 and bone morphogenic protein along with morselized autograft and morselized allograft was placed out laterally for posterolateral fusion from T4 through S1. 200 mcg of Duramorph along with 50 mcg of fentanyl were then injected intrathecally for postoperative pain control , along with the subcutaneous and intramuscular tissues which were re- infiltrated with local anesthesia. COMPLICATIONS: None. DISPOSITION: The patient is currently in the process of being repositioned for extubation and transport to the intensive care unit. /[id number]/MODL MTDD
[2016-10-25 03:15] LABS: % IMMATURE GRANULYOCYTES 0.6 % (0.0-1.1); ABSOLUTE IMMATURE GRANULOCYTES 0.07 10^3/uL (0.00-0.10); ADD DIFF? NO; ADD MORPH? NO; ADD SCAN? NO; ATYPICAL LYMPHOCYTE FLAG 10 (0-99); FRAGMENT RBC FLAG 0 (0-99); HEMATOCRIT 29.2 % (38.0-47.0); HEMOGLOBIN 9.8 g/dL (12.6-16.3); LEFT SHIFT FLG 0 (0-99); LIPEMIA HEMOLYSIS FLAG 80 (0-99); MEAN CELL HEMOGLOBIN CONCENTR. 33.6 g/dL (32.4-36.7); MEAN CELL VOLUME 86.4 fL (81.5-99.8); MEAN PLATELET VOLUME 10.9 fL (8.7-11.7); PLATELET CLUMPS FLAG 10 (0-99); PLATELET COUNT 127 10^3/uL (150-400); RED BLOOD CELL COUNT 3.38 10^6/uL (4.18-5.33); RED CELL DISTRIBUTION WIDTH 15.6 % (11.5-15.2)
[2016-10-25 03:36] LABS: ANION GAP 5 mEq/L (8-16); CALCIUM 8.9 mg/dL (8.5-10.4); CARBON DIOXIDE 24 mEq/l (22-31); CHLORIDE 113 mEq/L (97-110); CREATININE 0.5 mg/dL (0.6-1.0); GLOMERULAR FILTRATION RATE > 60; GLUCOSE 135 mg/dL (70-100); POTASSIUM 4.4 mEq/L (3.5-5.2); SODIUM 142 mEq/L (134-144)
[2016-10-25] MEDS: SENNOSIDES/DOCUSATE SODIUM TAB PO SCH ×2 (08:25→19:54)
[2016-10-25] MEDS: POLYETHYLENE GLYCOL 3350 17 GM PKT PO SCH ×3 (08:25→22:39)
[2016-10-25] MEDS: morphINE SR 15 MG TAB PO SCH ×2 (08:25→19:53)
[2016-10-25] MEDS: FLECAINIDE ACETATE 100 MG TAB PO SCH ×2 (08:26→19:53)
[2016-10-25] MEDS: SPIRONOLACTONE 25 MG TAB PO SCH (08:29)
[2016-10-25] MEDS: METHOCARBAMOL 750 MG TAB PO PRN ×2 (08:29→12:56)
[2016-10-25] MEDS ORDERED: ALTEPLASE 2 MG VIAL IVP PRN ×2 (09:29→09:52)
--- NOTE | 2016-10-25 10:18 | NEUSURGPN ---
Assessment/Plan: A: 70 yo F S/p Hardware removal, T4-S1 fusion with T12 osteotomy. POD#1 Plan: -Post op xrays pending -Clamshell brace to be fitted by [employer]. OK to be up and OOB while awaiting brace -TEDs, SCDs, encourage ambulation. Lovenox starts today at 5pm -Precedex ordered PRN -Follow HH - was transfused during sx. This AM HCT is 29. Continue to monitor coags and HH -Continue JOSE drain -PICC to be placed for poor IV access -PT/OT -D/w Dr Anna -Call NS with any issues Subjective: Pt resting in bedside chair. States her back is getting sore and wants to get back to bed. Objective: AAOx3 NAD VSS MAEx4 Motor 5/5 BLE +LT Incision dressed cdi JOSE x 1 with bloody fluid in bulb Urinary Catheter in Place: Yes Urinary Catheter Indication: Other (Use Comment) (to be removed today) Catheter Insertion Date: 10/24/16 - Physician Discussed Patient with : Wilfrido Neurosurgery Physical Exam - Vitals, I&O, Labs I and O 10/24/16 10/25/16 10/26/16 05:59 05:59 05:59 Intake Total 1662 240 Output Total 1140 Balance 522 240 Intake: Oral (ml) 740 240 IV Infused (ml) 922 Dexmedetomidine HCl 400 36 mcg In Ns 100 ml @ Titrate IV CONT RUPESH Rx#: [id number] NS W/ 20 KCl/L 1,000 ml @ 886 75 mls/hr IV CONT RUPESH Rx #:[id number] Output: Urine (ml) 750 Catheter 750 Wound Drainage (ml) 390 #1 Left Back 390 Other: Number of Stools Catheter 0 Vital Signs Temp Pulse Resp BP Pulse Ox 97.2 C H 87 18 104/55 L 100 10/25/16 04:00 10/25/16 06:00 10/25/16 06:00 10/25/16 06:00 10/25/16 06:30 Laboratory Results 10/25/16 03:00 10/25/16 03:00 ICD10 Worksheet Patient Problems: Problems Problem Status Onset Constipation Acute Fusion of lumbar spine Acute Generalized weakness Acute
[2016-10-25] MEDS: FAMOTIDINE 20 MG TAB PO SCH ×2 (12:56→19:53)
[2016-10-25] MEDS: FAMOTIDINE 20 MG/NACL 50 ML IV SCH (12:57)
[2016-10-25] MEDS: traMADol 50 MG TAB PO PRN (13:25)
--- NOTE | 2016-10-25 15:15 | GCON ---
[f rep st] CONSULTATION CRITICAL CARE CONSULT. DATE OF CONSULTATION: 10/25/2016 HISTORY OF PRESENT ILLNESS: The patient is a 70-year-old female with a complex medical history, who has had quite a bit of difficulty with kyphoscoliosis. She has required a number of back surgeries , as well as hardware removals in the past, and has had some difficulty with atrial fibrillation. I n any case, she was admitted yesterday for hardware removal, T4-S1 fusion, and T12 osteotomy. Surge ry itself was fairly uncomplicated, though she did get 4 units of pack cells, and was extubated and brought to the ICU for closer monitoring. Overnight, she said that her pain has been fairly well co ntrolled. She was somewhat confused, but otherwise carried on a fairly lucid conversation, and ther e were no other complications. REVIEW OF SYSTEMS: Otherwise negative. PAST MEDICAL HISTORY: 1. Hypertension. 2. Hard of hearing. 3. Atrial fibrillation, status post ablation. 4. Obstructive sleep apnea on BiPAP. 5. Ovarian cancer. 6. Uterine cancer. 7. Hypothyroidism after a goiter resection. 8. Benign pancreatic mass. 9. L5-S1 radiculopathy. 10. Basal cell carcinoma of the skin. 11. Anemia. 12. Hyponatremia. PAST SURGICAL HISTORY: 1. Includes yesterday's, as well as T12-S1 fusions in the past. Removal of hardware and re-instrum entation in July of this year. 2. Thyroidectomy. 3. Splenectomy. 4. Pancreatic mass resection. 5. Abdominal hysterectomy and salpingo-oophorectomy. 6. Knee surgery. 7. Mohs surgery in the past. SOCIAL HISTORY: She is a nonsmoker. No alcohol or IV drug use. FAMILY HISTORY: Noncontributory. MEDICATIONS: At this time include Tylenol, Maalox, Xanax, Dulcolax, Precedex, Valium, Cardizem, Rj adryl, Lovenox, Pepcid, Flecainide, Dilaudid, milk of magnesia, Robaxin, morphine GROUP DIRECTOR, MS Contin, Na rcan, Zofran, MiraLAX, Senokot, Aldactone and Ultram. PHYSICAL EXAMINATION: VITAL SIGNS: She was afebrile. Heart rate was 104, blood pressure 101/66, r espirations 16, oxygen saturation 93% on 2 L. GENERAL: She was awake and alert, in no apparent dis tress, oriented x3, though sometimes was mildly confused, otherwise in no distress and spoke in full sentences. HEENT: Pupils equally round, reactive to light, nonicteric and noninjected. Mucous me mbranes are moist without erythema or exudate. NECK: Supple without adenopathy or jugular vein dis tention. LUNGS: Breath sounds were clear to auscultation bilaterally without wheezes, rubs or rale s, although, they were somewhat distant. HEART: Regular rate and rhythm without murmurs, rubs, or gallops. ABDOMEN: Soft, nontender, nondistended without hepatosplenomegaly. EXTREMITIES: Showed no clubbing, cyanosis, or edema. NEUROLOGIC: Nonfocal, including cranial nerves and deep tendon re flexes. OBJECTIVE DATA: Includes a white count of 10.9, hematocrit 29, platelets 127. Basic metabolic pane l was unremarkable. ASSESSMENT/PLAN: 1. Status post spine surgery. She appears to be having adequate pain control at this time, as well as blood pressure. There is no evidence of ongoing bleeding. She will be pursuing ongoing physica l therapy, as well as occupational therapy. 2. Obstructive sleep apnea. She is currently using her own BiPAP set up, which is of course perfec tly appropriate at this time. She should continue to use that. 3. History of atrial fibrillation. She is in normal sinus rhythm now, this appears to be well cont rolled. 4. Hypertension. She is doing well on her outpatient medications, and I would continue the same mo ving forward. She can likely step-down to at least ALEJANDRO, if not med/surg, since she has done well po stoperatively. /[id number]/MODL
[2016-10-25] MEDS: ENOXAPARIN 40 MG/0.4 ML SYR SC SCH (17:09)
[2016-10-25] MEDS: HYDROmorphONE/DILAUDID 2 MG TAB PO PRN (17:12)
[2016-10-25] MEDS: DILTIAZEM CD 180 MG CAP PO SCH (18:07)
[2016-10-25] MEDS: ALPRAZolam 0.5 MG TAB PO PRN (19:54)
[2016-10-26 07:53] LABS: HEMATOCRIT 27.5 % (38.0-47.0); HEMOGLOBIN 9.1 g/dL (12.6-16.3); MEAN CELL HEMOGLOBIN 29.1 pg (27.9-34.1); MEAN CELL HEMOGLOBIN CONCENTR. 33.1 g/dL (32.4-36.7); MEAN CELL VOLUME 87.9 fL (81.5-99.8); RED BLOOD CELL COUNT 3.13 10^6/uL (4.18-5.33); RED CELL DISTRIBUTION WIDTH 16.2 % (11.5-15.2)
[2016-10-26 07:59] LABS: INR 1.18 (0.83-1.16)
--- NOTE | 2016-10-26 08:04 | NEUSURGPN ---
Assessment/Plan: A: 70 yo F S/p Hardware removal, T4-S1 fusion with T12 osteotomy. POD#2 Plan: -Post op xrays pending -Bowel protocol - give suppository -Clamshell brace to be fitted by Social Media Community Manager. OK to be up and OOB while awaiting brace -TEDs, SCDs, encourage ambulation. Lovenox -Follow HH - was transfused during sx. This AM HCT is 27. Continue to monitor coags and HH -Continue JOSE drain -PICC to be placed for poor IV access -PT/OT -OK to transfer to the floor 3N -Call NS with any issues Subjective: Pt resting in bed, c/o abdominal pain and constipation. Has passed some gas but no BM. Objective: AAOx3 NAD VSS MAEx4 Motor 5/5 BLE +LT Urinary Catheter in Place: No Catheter Insertion Date: 10/24/16 Neurosurgery Physical Exam - Vitals, I&O, Labs I and O 10/25/16 10/26/16 10/27/16 05:59 05:59 05:59 Intake Total 1662 240 Output Total 1140 960 Balance 522 -720 Intake: Oral (ml) 740 240 IV Infused (ml) 922 Dexmedetomidine HCl 400 36 mcg In Ns 100 ml @ Titrate IV CONT RUPESH Rx#: [id number] NS W/ 20 KCl/L 1,000 ml @ 886 75 mls/hr IV CONT RUPESH Rx #:[id number] Output: Urine (ml) 750 570 Bedside Commode 120 Catheter 750 450 Wound Drainage (ml) 390 390 #1 Left Back 390 390 Other: Intake Quantity Yes Sufficient Output Comment Bedside Commode post cath removal Number of Stools Catheter 0 Vital Signs Temp Pulse Resp BP Pulse Ox 37.1 C 105 H 18 125/45 H 94 10/25/16 23:49 10/25/16 23:49 10/25/16 23:49 10/25/16 23:49 10/25/16 23:49 Laboratory Results 10/25/16 03:00 10/25/16 03:00 ICD10 Worksheet Patient Problems: Problems Problem Status Onset Constipation Acute Fusion of lumbar spine Acute Generalized weakness Acute
[2016-10-26] MEDS: HYDROmorphONE/DILAUDID 2 MG TAB PO PRN ×2 (08:27→17:05)
[2016-10-26] MEDS: POLYETHYLENE GLYCOL 3350 17 GM PKT PO SCH ×4 (08:43→21:57)
[2016-10-26] MEDS: SPIRONOLACTONE 25 MG TAB PO SCH (08:45)
[2016-10-26] MEDS: FAMOTIDINE 20 MG TAB PO SCH ×2 (08:45→20:48)
[2016-10-26] MEDS: FLECAINIDE ACETATE 100 MG TAB PO SCH ×2 (08:46→20:47)
[2016-10-26] MEDS: SENNOSIDES/DOCUSATE SODIUM TAB PO SCH ×2 (08:47→20:48)
[2016-10-26] MEDS: ENOXAPARIN 40 MG/0.4 ML SYR SC SCH (08:49)
[2016-10-26] MEDS: morphINE SR 15 MG TAB PO SCH ×2 (08:54→20:47)
[2016-10-26] MEDS: traMADol 50 MG TAB PO PRN (12:29)
--- NOTE | 2016-10-26 14:21 | PDINTPN ---
[employer]yst Concentration Operator Progress Note Assessment/Plan: Assessment/plan: 70 F with kyphoscoliosis and numerous back surgeries in the past admitted for hardware removal and redo T4-S1 fusion, and T12 osteotomy. No intraoperative complications and extubated prior to ICU. Four units RBCs given intraop ( 3 from cell saver). * s/p extensive back surgery- awaiting brace. Pain reasonably controlled. * Constipation- she has had significant difficulty and hospitalization related to this in the past. She has a bowel regimen, but so far no success. Change lactulose to scheduled today. Patient also requested KUB. * NATALIA- using home bipap without issue * Afib hx- currently in NSR * HTN- controlled on dilt and aldactone * Objective: Vital Signs Temp Pulse Resp BP Pulse Ox 36.2 C 98 14 130/62 H 98 10/26/16 12:00 10/26/16 12:00 10/26/16 12:00 10/26/16 12:00 10/26/16 12:00 Laboratory Results 10/26/16 04:10 10/25/16 03:00 10/25/16 10/26/16 10/27/16 05:59 05:59 05:59 Intake Total 1662 240 Output Total 1140 960 Balance 522 -720 PT 15.0 SEC (12.0-15.0) 10/26/16 04:10 INR 1.18 (0.83-1.16) H 10/26/16 04:10 Physical Exam - Physical Exam General Appearance: WD/WN, alert, no apparent distress EENT: PERRL/EOMI Neck: supple Respiratory: lungs clear, normal breath sounds, No respiratory distress Cardiac/Chest: regular rate, rhythm, No edema Abdomen: No distended Skin: normal color, warm/dry Lymphatic: no adenopathy Extremities: No pedal edema Neuro/Psych: alert, normal mood/affect, oriented x 3 ICD10 Worksheet Patient Problems: Problems Problem Status Onset Constipation Acute Fusion of lumbar spine Acute Generalized weakness Acute
[2016-10-26] MEDS: LACTULOSE 20 GM/30 ML UDCUP PO SCH ×2 (15:12→21:57)
[2016-10-26] MEDS: ALPRAZolam 0.5 MG TAB PO PRN (17:05)
[2016-10-26] MEDS: DILTIAZEM CD 180 MG CAP PO SCH (17:05)
[2016-10-27] MEDS: HYDROmorphONE/DILAUDID 2 MG TAB PO PRN ×2 (02:46→12:03)
[2016-10-27 05:18] LABS: HEMATOCRIT 27.3 % (38.0-47.0); HEMOGLOBIN 8.9 g/dL (12.6-16.3); MEAN CELL HEMOGLOBIN CONCENTR. 32.6 g/dL (32.4-36.7); MEAN CELL VOLUME 88.9 fL (81.5-99.8); RED BLOOD CELL COUNT 3.07 10^6/uL (4.18-5.33); RED CELL DISTRIBUTION WIDTH 16.2 % (11.5-15.2)
[2016-10-27] MEDS: traMADol 50 MG TAB PO PRN (05:40)
[2016-10-27] MEDS: FAMOTIDINE 20 MG TAB PO SCH ×2 (07:36→19:38)
[2016-10-27] MEDS: SENNOSIDES/DOCUSATE SODIUM TAB PO SCH ×2 (07:36→19:25)
[2016-10-27] MEDS: FLECAINIDE ACETATE 100 MG TAB PO SCH ×2 (07:36→19:37)
[2016-10-27] MEDS: morphINE SR 15 MG TAB PO SCH ×2 (07:36→19:38)
[2016-10-27] MEDS: POLYETHYLENE GLYCOL 3350 17 GM PKT PO SCH ×4 (07:37→19:25)
[2016-10-27] MEDS: ENOXAPARIN 40 MG/0.4 ML SYR SC SCH (07:37)
[2016-10-27] MEDS: LACTULOSE 20 GM/30 ML UDCUP PO SCH ×3 (07:37→19:25)
--- NOTE | 2016-10-27 07:37 | SOAPPROG ---
SOAP Progress Note Assessment/Plan: Assessment: 70 yo F POD #3 T4-S1 fusion Plan: neuro: stable and dong well overall :) PT/OT brace when out of bed hg/hct stable from anemia of blood loss, follow for now scd/sarah/lovenox for dvt prophylaxis please call with neuro changes discussed with Dr Carson 10/27/16 07:35 Subjective: + back pain, no leg pain, no weakness. Objective: Vital Signs Temp Pulse Resp BP Pulse Ox 36.6 C 85 14 106/49 L 97 10/27/16 04:57 10/27/16 04:57 10/27/16 00:00 10/27/16 05:40 10/27/16 04:57 Laboratory Results 10/27/16 05:00 10/25/16 03:00 10/26/16 10/27/16 10/28/16 05:59 05:59 05:59 Intake Total 240 1200 Output Total 960 1415 90 Balance -720 -215 -90 PT 15.0 SEC (12.0-15.0) 10/26/16 04:10 INR 1.18 (0.83-1.16) H 10/26/16 04:10 AAOX4, +FC PERRL, EOMI, no facial droop 5/5 + light touch C/D/I ICD10 Worksheet Patient Problems: Problems Problem Status Onset Constipation Acute Fusion of lumbar spine Acute Generalized weakness Acute
[2016-10-27] MEDS: SPIRONOLACTONE 25 MG TAB PO SCH (07:41)
[2016-10-27] MEDS: DILTIAZEM CD 180 MG CAP PO SCH (17:53)
[2016-10-27] MEDS: ALPRAZolam 0.5 MG TAB PO PRN (19:37)
--- NOTE | 2016-10-28 07:23 | NEUSURGPN ---
Assessment/Plan: A: 70 yo F S/p Hardware removal, T4-S1 fusion with T12 osteotomy. POD#4 Plan: -Post op xrays show stable hardware -Bowel protocol - add mag citrate -Clamshell brace to be fitted by Advertising Columnist. Brace when OOB -TEDs, SCDs, encourage ambulation. Lovenox -Follow HH - was transfused during sx due to post op anemia due to blood loss. This AM HCT is 27. Continue to monitor -Continue JOSE drain -PT/OT -D/w Dr Anna and Dr Carson -Call NS with any issues Objective: AAOx3 NAD VSS MAEx4 Motor 5/5 BLE Incision cdi sidney in place JOSE drain with serosanguineous dc in bulb +LT Urinary Catheter in Place: No Catheter Insertion Date: 10/24/16 - Physician Discussed Patient with : Lc Neurosurgery Physical Exam - Vitals, I&O, Labs I and O 10/27/16 10/28/16 10/29/16 05:59 05:59 05:59 Intake Total 1200 Output Total 1415 307 Balance -215 -307 Intake: Oral (ml) 1200 Output: Urine (ml) 850 2 Bedside Commode 850 2 Urine/Stool Mix (ml) 400 Bedside Commode 400 Wound Drainage (ml) 165 305 #1 Left Back 165 305 Other: Intake Quantity Yes Sufficient Number of Voids Bedside Commode 2 Toilet 1 Number of Stools Bedside Commode 1 Vital Signs Temp Pulse Resp BP Pulse Ox 37.1 C 88 19 126/66 H 93 10/28/16 06:30 10/28/16 06:30 10/28/16 06:30 10/28/16 06:30 10/28/16 06:30 Laboratory Results 10/27/16 05:00 10/25/16 03:00 ICD10 Worksheet Patient Problems: Problems Problem Status Onset Constipation Acute Fusion of lumbar spine Acute Generalized weakness Acute
[2016-10-28] MEDS: LACTULOSE 20 GM/30 ML UDCUP PO SCH ×3 (08:08→22:25)
[2016-10-28] MEDS: FAMOTIDINE 20 MG TAB PO SCH ×2 (08:09→22:09)
[2016-10-28] MEDS: FLECAINIDE ACETATE 100 MG TAB PO SCH ×2 (08:09→22:10)
[2016-10-28] MEDS: ENOXAPARIN 40 MG/0.4 ML SYR SC SCH (08:09)
[2016-10-28] MEDS: SENNOSIDES/DOCUSATE SODIUM TAB PO SCH ×2 (08:09→22:09)
[2016-10-28] MEDS: morphINE SR 15 MG TAB PO SCH ×2 (08:09→22:08)
[2016-10-28] MEDS: SPIRONOLACTONE 25 MG TAB PO SCH (08:10)
[2016-10-28] MEDS: POLYETHYLENE GLYCOL 3350 17 GM PKT PO SCH ×3 (08:12→22:25)
[2016-10-28] MEDS: traMADol 50 MG TAB PO PRN ×2 (11:42→17:47)
[2016-10-28] MEDS: DILTIAZEM CD 180 MG CAP PO SCH (17:47)
[2016-10-28] MEDS: ALPRAZolam 0.5 MG TAB PO PRN (22:11)
[2016-10-29] MEDS: traMADol 50 MG TAB PO PRN ×4 (00:03→16:00)
[2016-10-29] MEDS: SENNOSIDES/DOCUSATE SODIUM TAB PO SCH (08:19)
[2016-10-29] MEDS: FAMOTIDINE 20 MG TAB PO SCH (08:20)
[2016-10-29] MEDS: morphINE SR 15 MG TAB PO SCH (08:20)
[2016-10-29] MEDS: SPIRONOLACTONE 25 MG TAB PO SCH (08:20)
[2016-10-29] MEDS: FLECAINIDE ACETATE 100 MG TAB PO SCH (08:20)
[2016-10-29] MEDS: ENOXAPARIN 40 MG/0.4 ML SYR SC SCH (08:21)
[2016-10-29] MEDS: POLYETHYLENE GLYCOL 3350 17 GM PKT PO SCH ×2 (08:23→16:16)
[2016-10-29] MEDS: LACTULOSE 20 GM/30 ML UDCUP PO SCH ×2 (08:23→16:16)
[2016-10-29 08:45] VITALS: TEMP 98.3
--- NOTE | 2016-10-29 09:01 | SOAPPROG ---
SOAP Progress Note Assessment/Plan: Assessment: 70 yo F POD #5 T4-S1 fusion Doing well Tolerating Clamshell brace Plan: neuro: stable and doing well overall PT/OT brace when out of bed scd/sarah/lovenox for dvt prophylaxis please call with neuro changes Continue JOSE drain DC planning Subjective: out of bed in chair, feeling good this AM. Tolerating Clamshell brace denies numbness or tingling Objective: Vital Signs Temp Pulse Resp BP Pulse Ox 36.9 C 78 16 126/67 H 94 10/29/16 00:00 10/29/16 00:00 10/29/16 00:00 10/29/16 00:00 10/29/16 00:00 Laboratory Results 10/27/16 05:00 10/25/16 03:00 10/28/16 10/29/16 10/30/16 05:59 05:59 05:59 Intake Total 950 Output Total 382 200 Balance -382 750 PT 15.0 SEC (12.0-15.0) 10/26/16 04:10 INR 1.18 (0.83-1.16) H 10/26/16 04:10 Dressing: CDI JOSE: 40ml Neuro: PONCE, sens +LT ambulatory with walker Slight left iliopsoas weakness 5-/5 ICD10 Worksheet Patient Problems: Problems Problem Status Onset Constipation Acute Fusion of lumbar spine Acute Generalized weakness Acute
--- NOTE | 2016-10-29 13:00 | PDIAF ---
- Diagnosis Diagnosis: thoracolumbar fusion for progressive kyphosis Code Status: Full Code - Medication Management Discharge Medications: Medications to Continue on Transfer Diltiazem HCl [Cartia XT 180mg] 180 mg PO DAILY@18 03/12/16 [Last Taken 16:00] Omeprazole [Prilosec 20 mg] 20 mg PO HS 03/12/16 [Last Taken 10/23/16] Rivaroxaban [Xarelto 10mg (*)] 20 mg PO DAILY@18 03/12/16 [Last Taken 10/17/16] ALPRAZolam [Xanax 0.5 MG (*)] 0.5 mg PO HS PRN 04/01/16 [Last Taken 10/24/16 04: 30] Flecainide Acetate 50 mg PO BID 07/17/16 [Last Taken 10/24/16 04:30] Spironolactone [Aldactone 25 MG (*)] 25 mg PO DAILY 10/17/16 [Last Taken 09:00] traMADol [Ultram 50 mg (*)] 50 mg PO Q4-6PRN PRN 10/17/16 [Last Taken 10/23/16 23:00] Acetaminophen [Tylenol 325mg (*)] 325 - 650 mg PO Q4HRS PRN #0 tab 10/29/16 [ Last Taken Unknown] Famotidine [Pepcid 20 MG (*)] 20 mg PO BID #0 tab 10/29/16 [Last Taken Unknown] Methocarbamol [Robaxin 750 mg (*)] 750 mg PO QID PRN #60 tab 10/29/16 [Last Taken Unknown] Naloxone HCl [Narcan] 0 mg IVP PRN PRN #0 inj 10/29/16 [Last Taken Unknown] Ondansetron Odt [Zofran Odt 4 mg (*)] 4 - 8 mg PO Q6HRS PRN #0 tab 10/29/16 [ Last Taken Unknown] Polyethylene Glycol 3350 [Miralax 17 gm (*)] 17 gm PO TID #0 pkt 10/29/16 [Last Taken Unknown] Sennosides/Docusate Sodium [Senokot-S] 1 - 2 tab PO BID #0 tab 10/29/16 [Last Taken Unknown] Sennosides/Docusate Sodium [Senokot-S] 1 - 2 tab PO PRN PRN #0 10/29/16 [Last Taken Unknown] morphINE SR [Ms Contin/Oramorph 15 mg (*)] 15 mg PO BID #60 tab 10/29/16 [Last Taken Unknown] Discharge Medications: Refer to the Discharge Home Medication list for PRN reason. - Orders Services needed: Registered Nurse, Physical Therapy, Occupational Therapy Diet Recommendation: no restrictions on diet Diet Texture: Regular Texture Diet Street: Not applicable Wound Care Instructions: Check incsion daily. call with any drainaged, redness or pain Activity/Weight Bearing Restrictions: wear Clamshell brace when out of bed. no lifting over 10 lbs,no bending, no twisting x 6 weeks. Equipment: Makers AlleyshsliceX brace - Follow Up Care Current Providers and Referrals: Jennifer Muñoz [Primary Care Provider] -
[2016-10-29 17:05] VITALS: BP 151/68; PULSE 99; RESP 16; O2SAT 94
== END 2016-10-29 17:01 | DRG 457 ==
LOC: F3N 05:56 → F2N 17:21 → F3N 10-28 06:29
PROVIDERS: ADMIT Neurological Surgery; ATTEND Neurological Surgery
PROC: 30233N1 Transfusion of Nonautologous Red Blood Cells into Peripheral Vein, Percutaneous Approach (ICD-10-PCS; principal; 2016-10-24 07:15)
PROC: 0SG1071 Fusion of 2 or more Lumbar Vertebral Joints with Autologous Tissue Substitute, Posterior Approach, Posterior Column, Open Approach (ICD-10-PCS; principal; 2016-10-24 07:15)
PROC: 0RB60ZZ Excision of Thoracic Vertebral Joint, Open Approach (ICD-10-PCS; principal; 2016-10-24 07:15)
PROC: 0RPA04Z Removal of Internal Fixation Device from Thoracolumbar Vertebral Joint, Open Approach (ICD-10-PCS; principal; 2016-10-24 07:15)
PROC: 00NX0ZZ Release Thoracic Spinal Cord, Open Approach (ICD-10-PCS; principal; 2016-10-24 07:15)
PROC: 0RG8071 Fusion of 8 or more Thoracic Vertebral Joints with Autologous Tissue Substitute, Posterior Approach, Posterior Column, Open Approach (ICD-10-PCS; principal; 2016-10-24 07:15)
PROC: 3E0U0GB Introduction of Recombinant Bone Morphogenetic Protein into Joints, Open Approach (ICD-10-PCS; principal; 2016-10-24 07:15)
PROC: 0RB90ZZ Excision of Thoracic Vertebral Disc, Open Approach (ICD-10-PCS; principal; 2016-10-24 07:15)
PROC: 0RGA0AJ Fusion of Thoracolumbar Vertebral Joint with Interbody Fusion Device, Posterior Approach, Anterior Column, Open Approach (ICD-10-PCS; principal; 2016-10-24 07:15)
PROC: 0SG3071 Fusion of Lumbosacral Joint with Autologous Tissue Substitute, Posterior Approach, Posterior Column, Open Approach (ICD-10-PCS; principal; 2016-10-24 07:15)
PROC: 0RG60AJ Fusion of Thoracic Vertebral Joint with Interbody Fusion Device, Posterior Approach, Anterior Column, Open Approach (ICD-10-PCS; principal; 2016-10-24 07:15)
PROC: 02HV33Z Insertion of Infusion Device into Superior Vena Cava, Percutaneous Approach (ICD-10-PCS; 2016-10-25)
DX: T84.296A Other mechanical complication of internal fixation device of vertebrae, initial encounter (principal); M84.48XA Pathological fracture, other site, initial encounter for fracture; M40.204 Unspecified kyphosis, thoracic region; D62 Acute posthemorrhagic anemia; K59.00 Constipation, unspecified; E89.0 Postprocedural hypothyroidism; I10 Essential (primary) hypertension; I48.91 Unspecified atrial fibrillation; G47.33 Obstructive sleep apnea (adult) (pediatric); Z99.81 Dependence on supplemental oxygen
CPT/HCPCS: 97116-GP; 97161-GP; 97165-GO; 97530-GO; 97530-GP; 97535-GO; C1713; C1751; C1762; G8978-GP-CK; G8979-GP-CI; G8979-GP-CJ; G8980-GP-CJ; G8987-GO-CK; G8988-GO-CI; J0330; J0690; J1650; J2274; J2370; J2405; J2704; J2760; J3010; J7060; P9016; P9017; P9041; P9047